=== PATIENT | female | born 1955 | race Hispanic/Latino ===

== ENCOUNTER 2020-02-06 16:17 | Inpatient (IN) | payer OTHER ==
[2020-02-06 17:59] LABS: Hematocrit 25.4 % (30.3-42.9); Hemoglobin 8.4 gm/dl (10.1-14.3); Mean Corpuscular HGB Conc 33 % (30-34); Mean Corpuscular Volume 88 fl (79-97); Platelet Count 278 K/mm3 (140-440); Red Blood Count 2.87 M/mm3 (3.65-5.03); Red Cell Distribution Width 13.7 % (13.2-15.2)
--- NOTE | 2020-02-06 21:12 | Emergency Department Report ---
- General Chief complaint: Medical Clearance Stated complaint: WEAKNESS Time Seen by Provider: 02/06/20 21:00 Source: EMS Mode of arrival: Wheelchair Limitations: No Limitations - History of Present Illness Initial comments: 64-year-old female with a past medical history of end-stage renal disease on dialysis, hypertension, diabetes but not on meds, legally blind, and arthritis p resents to the hospital complaining of progressive worsening generalized weakness and fatigue since missing dialysis. Patient does not have insurance and goes to [facility] ER on average once a week to obtain dialysis. She presented to [facility] 3 days ago but was told she did not meet criteria for emergent dialysis and therefore she was discharged without receiving dialysis. Now it has been a total of 10 days since her last dialysis. Patient complains of worsening edema to left breast and left-sided abdomen because this is the side she typically sleeps on. Patient makes urine on average once every 3 days. - Related Data Home Medications Medication Instructions Recorded Confirmed Last Taken Aspirin [Adult Aspirin] 81 mg PO QPM 02/07/20 02/07/20 2 Days Ago ~02/05/20 81 mg Ibuprofen [Ibu-200] 200 mg PO BID PRN 02/07/20 02/07/20 1 Day Ago ~02/06/20 200 mg amLODIPine [Norvasc] 10 mg PO DAILY 02/07/20 02/07/20 1 Day Ago ~02/06/20 10 mg diphenhydrAMINE [Benadryl CAP] 25 mg PO QHS PRN 02/07/20 02/07/20 02/05/20 25 mg hydrALAZINE [Apresoline TAB] 100 mg PO TID 02/07/20 02/07/20 1 Day Ago ~02/06/20 100 mg lisinopriL [Zestril TAB] 40 mg PO QPM 02/07/20 02/07/20 1 Day Ago ~02/06/20 40 mg Allergies Allergy/AdvReac Type Severity Reaction Status Date / Time latex Allergy Rash Verified 02/07/20 01:57 Latex, Natural Rubber Allergy Rash Verified 02/07/20 01:57 ED Review of Systems ROS: Stated complaint: WEAKNESS Other details as noted in HPI Comment: All other systems reviewed and negative ED Past Medical Hx - Past Medical History Previous Medical History?: Yes Hx Hypertension: Yes Hx Diabetes: Yes (Questionable diabetes but not on meds) Hx Renal Disease: Yes (End-stage renal disease on dialysis) Additional medical history: Arthritis - Surgical History Past Surgical History?: Yes Additional Surgical History: Tubal ligation, tonsillectomy - Social History Smoking Status: Never Smoker Substance Use Type: None - Medications Home Medications: Home Medications Medication Instructions Recorded Confirmed Last Taken Type Aspirin [Adult Aspirin] 81 mg PO QPM 02/07/20 02/07/20 2 Days Ago History ~02/05/20 81 mg Ibuprofen [Ibu-200] 200 mg PO BID PRN 02/07/20 02/07/20 1 Day Ago History ~02/06/20 200 mg amLODIPine [Norvasc] 10 mg PO DAILY 02/07/20 02/07/20 1 Day Ago History ~02/06/20 10 mg diphenhydrAMINE [Benadryl CAP] 25 mg PO QHS PRN 02/07/20 02/07/20 02/05/20 History 25 mg hydrALAZINE [Apresoline TAB] 100 mg PO TID 02/07/20 02/07/20 1 Day Ago History ~02/06/20 100 mg lisinopriL [Zestril TAB] 40 mg PO QPM 02/07/20 02/07/20 1 Day Ago History ~02/06/20 40 mg ED Physical Exam - General Limitations: No Limitations - Other Other exam information: General: No acute distress Head: Atraumatic Eyes: normal appearance ENT: Moist mucous membranes Neck: Normal appearance, no midline tenderness Chest: Clear to auscultation bilaterally, left breast edema without warmth or erythema CV: Regular rate and rhythm. Left upper arm AV access with palpable thrill Abdomen: Soft, left abdominal wall edema, normal bowel sounds, nontender, n ondistended, no rebound or guarding Back: Normal inspection Extremity: Normal inspection, full range of motion, no leg edema or calf tenderness. Neuro: Alert O x 3, no facial asymmetry, speech clear, no gross motor sensory deficit Psych: Appropriate behavior Skin: No rash ED Course Vital Signs 02/06/20 02/06/20 02/06/20 16:27 21:54 22:00 Temperature 98.2 F Pulse Rate 72 72 72 Respiratory 18 16 16 Rate Blood Pressure 141/52 155/50 155/50 O2 Sat by Pulse 100 100 100 Oximetry 02/06/20 02/06/20 02/06/20 22:15 22:20 22:30 Temperature Pulse Rate 74 73 79 Respiratory 16 16 19 Rate Blood Pressure 157/52 157/52 157/52 O2 Sat by Pulse 99 97 97 Oximetry 02/06/20 02/06/20 02/06/20 22:45 23:00 23:15 Temperature Pulse Rate 76 Respiratory 18 Rate Blood Pressure 145/53 139/47 139/49 O2 Sat by Pulse 98 97 98 Oximetry 02/06/20 02/06/20 02/07/20 23:30 23:46 00:00 Temperature Pulse Rate 73 Respiratory 16 Rate Blood Pressure 139/67 139/67 139/67 O2 Sat by Pulse 98 97 100 Oximetry 02/07/20 02/07/20 02/07/20 00:16 00:30 00:50 Temperature Pulse Rate 74 75 77 Respiratory 18 16 21 Rate Blood Pressure 139/67 139/67 139/67 O2 Sat by Pulse 99 97 98 Oximetry - Consultations Consultation #1: 02/06/20 21:24 Case discussed with on-call azure developer Dr. Russell. Recommends potassium p.o. 20 mEq and will manage dialysis ED Medical Decision Making - Lab Data Result diagrams: 02/07/20 05:35 02/07/20 05:35 Lab Results 02/06/20 02/06/20 02/06/20 Range/Units 17:23 17:23 20:03 WBC 14.9 H (4.5-11.0) K/mm3 RBC 2.87 L (3.65-5.03) M/mm3 Hgb 8.4 L (10.1-14.3) gm/dl Hct 25.4 L (30.3-42.9) % MCV 88 (79-97) fl MCH 29 (28-32) pg MCHC 33 (30-34) % RDW 13.7 (13.2-15.2) % Plt Count 278 (140-440) K/mm3 Sodium 136 L (137-145) mmol/L Potassium 2.9 L* (3.6-5.0) mmol/L Chloride 92.9 L (98-107) mmol/L Carbon Dioxide 18 L (22-30) mmol/L Anion Gap 28 mmol/L BUN 70 H (7-17) mg/dL Creatinine 8.4 H (0.6-1.2) mg/dL Estimated GFR 5 ml/min BUN/Creatinine Ratio 8 % Glucose 59 L (65-100) mg/dL POC Glucose 106 H (70-105) Calcium 8.0 L (8.4-10.2) mg/dL Critical Care Time: No Critical care attestation.: If time is entered above; I have spent that time in minutes in the direct care of this critically ill patient, excluding procedure time. ED Disposition Clinical Impression: ESRD needing dialysis, Generalized weakness, Hypokalemia, Breast edema Disposition: OP ADMIT IP TO THIS HOSP Is pt being admited?: Yes Condition: Stable Time of Disposition: 21:25 (Dr tyler/hosp)
[2020-02-06] MEDS ORDERED: POTASSIUM CHLORIDE ER 20 MEQ TAB PO ONE ×2 (21:23→22:03)
--- NOTE | 2020-02-06 21:57 | XRay Report ---
Chest single view INDICATION: Dyspnea IMPRESSION: Moderate bilateral cardiopulmonary edema with small right pleural effusion. Signer Name: Brandon Vo MD Signed: 02/06/2020 9:52 PM Workstation Name: [id number]
[2020-02-06] MEDS ORDERED: MAGNESIUM HYDROXIDE (MOM) ORAL LIQD UDC PO PRN (22:59)
--- NOTE | 2020-02-06 23:28 | History and Physical Report ---
History of Present Illness Date of examination: 02/06/20 Date of admission: 02/06/20 21:30 Chief complaint: Generalized Weakness History of present illness: 64-year-old female with known history of hypertension, diabetes mellitus arthritis and end-stage renal disease on dialysis presents to the emergency room today complaining of worsening generalized body weakness and fatigue for the past few days. Patient goes to [facility] about once a week for dialysis secondary to lack of insurance. She was at [facility] about 3 days ago and dialysis was declined as she did not meet criteria for emergent dialysis. Patient has not had dialysis for the past 10 days. She has no having worsening swelling of her left breast and left side of abdomen. Patient still makes a little bit of urine almost every 3 days. She denies any fever or chills, no nausea vomiting, no chest pain, no shortness of breath, no headache or dizziness. Work-up in the emergency room today reveals hypokalemia of 2.9. Chronic Disease Epidemiologist Dr. Russell has been notified by the ER physician and patient will be scheduled for dialysis in the a.m. Past History Past Medical History: diabetes, ESRD, hypertension Past Surgical History: Other (Tubal ligation,Tonsillectomy) Social history: no significant social history Medications and Allergies Allergies Allergy/AdvReac Type Severity Reaction Status Date / Time latex Allergy Rash Verified 02/07/20 01:57 Latex, Natural Rubber Allergy Rash Verified 02/07/20 01:57 Home Medications Medication Instructions Recorded Confirmed Last Taken Type Aspirin [Adult Aspirin] 81 mg PO QPM 02/07/20 02/07/20 2 Days Ago History ~02/05/20 81 mg Ibuprofen [Ibu-200] 200 mg PO BID PRN 02/07/20 02/07/20 1 Day Ago History ~02/06/20 200 mg amLODIPine [Norvasc] 10 mg PO DAILY 02/07/20 02/07/20 1 Day Ago History ~02/06/20 10 mg diphenhydrAMINE [Benadryl CAP] 25 mg PO QHS PRN 02/07/20 02/07/20 02/05/20 History 25 mg hydrALAZINE [Apresoline TAB] 100 mg PO TID 02/07/20 02/07/20 1 Day Ago History ~02/06/20 100 mg lisinopriL [Zestril TAB] 40 mg PO QPM 02/07/20 02/07/20 1 Day Ago History ~02/06/20 40 mg Active Meds: Active Medications Acetaminophen (Tylenol) 650 mg PO Q4H PRN PRN Reason: Pain MILD(1-3)/Fever >100.5/ADLER Dextrose (D50w (25gm) Syringe) 50 ml IV Q30MIN PRN; Protocol PRN Reason: Hypoglycemia Heparin Sodium (Porcine) (Heparin) 5,000 unit SUB-Q Q8HR ANDREW Insulin Human Lispro (Humalog) 0 unit SUB-Q ACHS ANDREW; Protocol Magnesium Hydroxide (Milk Of Magnesia) 30 ml PO Q4H PRN PRN Reason: Constipation Morphine Sulfate (Morphine) 2 mg IV Q4H PRN PRN Reason: Pain, Moderate (4-6) Ondansetron HCl (Zofran) 4 mg IV Q8H PRN PRN Reason: Nausea And Vomiting Sodium Chloride (Sodium Chloride Flush Syringe 10 Ml) 10 ml IV BID ANDREW Sodium Chloride (Sodium Chloride Flush Syringe 10 Ml) 10 ml IV PRN PRN PRN Reason: LINE FLUSH Review of Systems Constitutional: no fever, no chills Breasts: swelling (Swelling over the left breast) Cardiovascular: no chest pain, no palpitations Respiratory: shortness of breath, no cough Gastrointestinal: no abdominal pain, no nausea, no vomiting, no diarrhea Genitourinary Female: no pelvic pain, no flank pain, no hematuria Musculoskeletal: no neck pain, no low back pain Integumentary: no rash, no pruritis Neurological: no headaches, no confusion Psychiatric: no anxiety, no depression Exam - Constitutional Vitals: Temp Pulse Resp BP Pulse Ox 98.2 F 74 16 157/52 99 02/06/20 16:27 02/06/20 22:15 02/06/20 22:15 02/06/20 22:15 02/06/20 22:15 General appearance: Present: no acute distress, well-nourished - EENT Eyes: Present: PERRL, EOM intact. Absent: scleral icterus ENT: hearing intact, clear oral mucosa, dentition normal - Neck Neck: Present: supple, normal ROM. Absent: carotid bruits (Mainly here) - Respiratory Respiratory effort: normal Respiratory: bilateral: CTA - Cardiovascular Rhythm: regular Heart Sounds: Present: S1 & S2. Absent: gallop, systolic murmur, diastolic murmur, rub - Extremities Extremities: no ischemia, pulses intact, pulses symmetrical (Left upper arm AV fistula with palpable thrill), No edema, Full ROM Peripheral Pulses: within normal limits - Abdominal General gastrointestinal: Present: soft, non-tender, distended (Abdominal wall edema), normal bowel sounds. Absent: mass - Integumentary Integumentary: Present: clear, warm, dry. Absent: rash - Musculoskeletal Musculoskeletal: strength equal bilaterally - Psychiatric Psychiatric: appropriate mood/affect, intact judgment & insight, memory intact, cooperative - Neurologic Neurologic: CNII-XII intact, no focal deficits, moves all extremities Results - Labs CBC & Chem 7: 02/06/20 17:23 02/06/20 17:23 Labs: Abnormal lab results 02/06/20 02/06/20 02/06/20 Range/Units 17:23 17:23 20:03 WBC 14.9 H (4.5-11.0) K/mm3 RBC 2.87 L (3.65-5.03) M/mm3 Hgb 8.4 L (10.1-14.3) gm/dl Hct 25.4 L (30.3-42.9) % Sodium 136 L (137-145) mmol/L Potassium 2.9 L* (3.6-5.0) mmol/L Chloride 92.9 L (98-107) mmol/L Carbon Dioxide 18 L (22-30) mmol/L BUN 70 H (7-17) mg/dL Creatinine 8.4 H (0.6-1.2) mg/dL Glucose 59 L (65-100) mg/dL POC Glucose 106 H (70-105) Calcium 8.0 L (8.4-10.2) mg/dL Assessment and Plan - Patient Problems (1) ESRD needing dialysis Current Visit: Yes Status: Acute Plan to address problem: Consult has been placed to bathing suit maker for dialysis in the a.m. Dr. Russell was notified by the ER physician (2) Breast edema Current Visit: Yes Status: Acute Plan to address problem: Possibly secondary to fluid retention due to lack of dialysis in 10 days. (3) Generalized weakness Current Visit: Yes Status: Acute Plan to address problem: Possibly secondary to the end-stage renal disease. Patient has not had dialysis in about 10 days. (4) Hypokalemia Current Visit: Yes Status: Acute Plan to address problem: Potassium will be repleted and will monitor chemistry. (5) DVT prophylaxis Current Visit: Yes Status: Acute Plan to address problem: Patient placed on subcutaneous heparin. (6) Full code status Current Visit: Yes Status: Acute
[2020-02-07] MEDS: ONDANSETRON 4 MG/2 ML INJ IV PRN ×2 (04:09→20:20)
[2020-02-07] MEDS: MORPHINE 2 MG/1 ML INJ IV PRN ×2 (04:09→20:20)
[2020-02-07 05:48] LABS: Hematocrit 23.1 % (30.3-42.9); Hemoglobin 7.8 gm/dl (10.1-14.3); Mean Corpuscular HGB Conc 34 % (30-34); Mean Corpuscular Volume 88 fl (79-97); Platelet Count 255 K/mm3 (140-440); Red Blood Count 2.63 M/mm3 (3.65-5.03); Red Cell Distribution Width 13.7 % (13.2-15.2)
[2020-02-07 05:59] LABS: INR 1.29 (0.87-1.13)
[2020-02-07 06:09] LABS: Calcium 7.7 mg/dL (8.4-10.2)
[2020-02-07] MEDS: HEPARIN 5,000 UNIT/1 ML VIAL SUB-Q SCH ×3 (06:59→21:42)
[2020-02-07 07:00] LABS: Basophils % (Manual) 0 % (0.0-1.8); Burr Cells Rare; Ovalocytes Rare; Schistocytes Rare; Target Cells Rare; Total Cells Counted 100
[2020-02-07 07:01] LABS: Platelet Estimate Consistent w Auto
[2020-02-07] MEDS: INSULIN LISPRO 100 UNIT/ML VIAL 3 mL SUB-Q SCH ×4 (09:09→22:38)
--- NOTE | 2020-02-07 09:22 | Consultation ---
History of Present Illness - Reason for Consult Consult date: 02/07/20 end stage renal disease - History of Present Illness Mrs Salcido is a 64yo with ESRD who presents to the ED with complaint of fatigue, weakness. She also complains of generalized swelling - more on left side and primarily left breast. She does not have an outpatient dialysis center, so she receives dialysis at local hospitals. She reports that her last treatment was appx 10 days ago. She denies SOB, nausea and vomiting. Past History Past Medical History: diabetes, ESRD, hypertension Past Surgical History: Other (Tubal ligation,Tonsillectomy) Social history: no significant social history Medications and Allergies Allergies Allergy/AdvReac Type Severity Reaction Status Date / Time latex Allergy Rash Verified 02/07/20 01:57 Latex, Natural Rubber Allergy Rash Verified 02/07/20 01:57 Home Medications Medication Instructions Recorded Confirmed Last Taken Type Aspirin [Adult Aspirin] 81 mg PO QPM 02/07/20 02/07/20 2 Days Ago History ~02/05/20 81 mg Ibuprofen [Ibu-200] 200 mg PO BID PRN 02/07/20 02/07/20 1 Day Ago History ~02/06/20 200 mg amLODIPine [Norvasc] 10 mg PO DAILY 02/07/20 02/07/20 1 Day Ago History ~02/06/20 10 mg diphenhydrAMINE [Benadryl CAP] 25 mg PO QHS PRN 02/07/20 02/07/20 02/05/20 History 25 mg hydrALAZINE [Apresoline TAB] 100 mg PO TID 02/07/20 02/07/20 1 Day Ago History ~02/06/20 100 mg lisinopriL [Zestril TAB] 40 mg PO QPM 02/07/20 02/07/20 1 Day Ago History ~02/06/20 40 mg Active Meds: Active Medications Acetaminophen (Tylenol) 650 mg PO Q4H PRN PRN Reason: Pain MILD(1-3)/Fever >100.5/ADLER Dextrose (D50w (25gm) Syringe) 50 ml IV Q30MIN PRN; Protocol PRN Reason: Hypoglycemia Heparin Sodium (Porcine) (Heparin) 5,000 unit SUB-Q Q8HR ANDREW Last Admin: 02/07/20 06:59 Dose: Not Given Documented by: Insulin Human Lispro (Humalog) 0 unit SUB-Q ACHS ANDREW; Protocol Last Admin: 02/07/20 09:09 Dose: Not Given Documented by: Magnesium Hydroxide (Milk Of Magnesia) 30 ml PO Q4H PRN PRN Reason: Constipation Morphine Sulfate (Morphine) 2 mg IV Q4H PRN PRN Reason: Pain, Moderate (4-6) Last Admin: 02/07/20 04:09 Dose: 2 mg Documented by: Ondansetron HCl (Zofran) 4 mg IV Q8H PRN PRN Reason: Nausea And Vomiting Last Admin: 02/07/20 04:09 Dose: 4 mg Documented by: Sodium Chloride (Sodium Chloride Flush Syringe 10 Ml) 10 ml IV BID ANDREW Sodium Chloride (Sodium Chloride Flush Syringe 10 Ml) 10 ml IV PRN PRN PRN Reason: LINE FLUSH Last Admin: 02/07/20 04:10 Dose: 10 ml Documented by: Review of Systems All systems: negative Exam - Vital Signs Vital signs: Vital Signs Temp Pulse Resp BP Pulse Ox 98.2 F 72 18 141/52 100 02/06/20 16:27 02/06/20 16:27 02/06/20 16:27 02/06/20 16:27 02/06/20 16:27 - General Appearance General appearance: well-developed, well-nourished EENT: ATNC Respiratory: Clear to Ascultation Heart: regular, S1S2 Gastrointestinal: Present: obese, other (flank wall edema) Musculoskeletal: Present: other (+ edema) Psychiatric: cooperative Results - Lab Results 02/07/20 05:35 02/07/20 05:35 Most recent lab results Calcium 7.7 mg/dL (8.4-10.2) L 02/07/20 05:35 Assessment and Plan Impression: * End stage renal disease * Edema * Left breast swelling - ?secondary to possible central venous stenosis * Type II DM * Hypertension * Hypokalemia * Anemia secondary to ESRD Plan: * Hemodialysis today - UF as tolerated * If patient remains hospitalized, will plan for hemodialysis tomorrow * Epogen TIW prn * Liberalize diet * Glycemic control per primary team * Dose medications for renal function
[2020-02-07] MEDS ORDERED: SODIUM CHLORIDE 0.9% 100 ML IV PRN ×2 (10:00→11:00)
--- NOTE | 2020-02-07 14:31 | Progress Note ---
Assessment and Plan Assessment and plan: --Diarrhea, probably viral: Imodium, plenty of oral fluids, stool analysis Supportive care --Hypotension; encourage plenty of oral fluids, gentle hydration as patient is end-stage renal disease on dialysis -- ESRD needing dialysis Current Visit: Yes Status: Acute Plan to address problem: Patient received hemodialysis today consult has been placed to wax pot tender for dialysis in the a.m. Dr. Russell was notified by the ER physician -- Breast edema/generalized edema Current Visit: Yes Status: Acute Plan to address problem: Possibly secondary to fluid retention due to lack of dialysis in 10 days. --Generalized weakness Current Visit: Yes Status: Acute Plan to address problem: Possibly secondary to the end-stage renal disease. And diarrhea --Medical noncompliance; Patient is noncompliant with dialysis and follow-up visits Counseling done strongly advised to comply with medications diet follow-up visits especially hemodialysis Patient verbalized understanding -- Hypokalemia Current Visit: Yes Status: Acute . Plan to address problem: Replaced, follow levels -- DVT prophylaxis Current Visit: Yes Status: Acute Plan to address problem: Patient placed on subcutaneous heparin. --Full code status Current Visit: Yes Status: Acute We will closely monitor the patient and adjust management as needed History Interval history: I have seen and examined the patient Received hemodialysis today No new complaints vital signs reviewed Hospitalist Physical - Constitutional Vitals: Temp Pulse Resp BP Pulse Ox 99.1 F 80 18 142/47 94 02/07/20 11:31 02/07/20 11:31 02/07/20 11:31 02/07/20 11:31 02/07/20 11:31 General appearance: Present: no acute distress, well-nourished - EENT Eyes: Present: PERRL, EOM intact - Neck Neck: Present: supple, normal ROM - Respiratory Respiratory effort: normal Respiratory: bilateral: diminished, rales, negative: rhonchi, wheezing - Cardiovascular Rhythm: regular Heart Sounds: Present: S1 & S2 - Extremities Extremities: no ischemia Extremity abnormal: edema - Abdominal General gastrointestinal: soft, non-tender, non-distended, normal bowel sounds - Integumentary Integumentary: Present: clear, warm - Psychiatric Psychiatric: appropriate mood/affect, cooperative - Neurologic Neurologic: moves all extremities Results - Labs CBC & Chem 7: 02/07/20 05:35 02/08/20 08:42 Labs: Laboratory Last Values WBC 13.9 K/mm3 (4.5-11.0) H 02/07/20 05:35 RBC 2.63 M/mm3 (3.65-5.03) L 02/07/20 05:35 Hgb 7.8 gm/dl (10.1-14.3) L 02/07/20 05:35 Hct 23.1 % (30.3-42.9) L 02/07/20 05:35 MCV 88 fl (79-97) 02/07/20 05:35 MCH 30 pg (28-32) 02/07/20 05:35 MCHC 34 % (30-34) 02/07/20 05:35 RDW 13.7 % (13.2-15.2) 02/07/20 05:35 Plt Count 255 K/mm3 (140-440) 02/07/20 05:35 Add Manual Diff Complete 02/07/20 05:35 Total Counted 100 02/07/20 05:35 Seg Neutrophils % Hydraulic Corrugating Machine Operator 02/07/20 05:35 Seg Neuts % (Manual) 90.0 % (40.0-70.0) H 02/07/20 05:35 Band Neutrophils % 0 % 02/07/20 05:35 Lymphocytes % (Manual) 3.0 % (13.4-35.0) L 02/07/20 05:35 Reactive Lymphs % (Man) 0 % 02/07/20 05:35 Monocytes % (Manual) 5.0 % (0.0-7.3) 02/07/20 05:35 Eosinophils % (Manual) 2.0 % (0.0-4.3) 02/07/20 05:35 Basophils % (Manual) 0 % (0.0-1.8) 02/07/20 05:35 Metamyelocytes % 0 % 02/07/20 05:35 Myelocytes % 0 % 02/07/20 05:35 Promyelocytes % 0 % 02/07/20 05:35 Blast Cells % 0 % 02/07/20 05:35 Nucleated RBC % Not Reportable 02/07/20 05:35 Seg Neutrophils # Man 12.5 K/mm3 (1.8-7.7) H 02/07/20 05:35 Band Neutrophils # 0.0 K/mm3 02/07/20 05:35 Lymphocytes # (Manual) 0.4 K/mm3 (1.2-5.4) L 02/07/20 05:35 Abs React Lymphs (Man) 0.0 K/mm3 02/07/20 05:35 Monocytes # (Manual) 0.7 K/mm3 (0.0-0.8) 02/07/20 05:35 Eosinophils # (Manual) 0.3 K/mm3 (0.0-0.4) 02/07/20 05:35 Basophils # (Manual) 0.0 K/mm3 (0.0-0.1) 02/07/20 05:35 Metamyelocytes # 0.0 K/mm3 02/07/20 05:35 Myelocytes # 0.0 K/mm3 02/07/20 05:35 Promyelocytes # 0.0 K/mm3 02/07/20 05:35 Blast Cells # 0.0 K/mm3 02/07/20 05:35 WBC Morphology Not Reportable 02/07/20 05:35 Hypersegmented Neuts Not Reportable 02/07/20 05:35 Hyposegmented Neuts Not Reportable 02/07/20 05:35 Hypogranular Neuts Not Reportable 02/07/20 05:35 Smudge Cells Not Reportable 02/07/20 05:35 Toxic Granulation Not Reportable 02/07/20 05:35 Toxic Vacuolation Not Reportable 02/07/20 05:35 Dohle Bodies Not Reportable 02/07/20 05:35 Pelger-Huet Anomaly Not Reportable 02/07/20 05:35 Dinesh Rods Not Reportable 02/07/20 05:35 Platelet Estimate Consistent w auto 02/07/20 05:35 Clumped Platelets Not Reportable 02/07/20 05:35 Plt Clumps, EDTA Not Reportable 02/07/20 05:35 Large Platelets Not Reportable 02/07/20 05:35 Giant Platelets Not Reportable 02/07/20 05:35 Platelet Satelliting Not Reportable 02/07/20 05:35 Plt Morphology Comment Not Reportable 02/07/20 05:35 RBC Morphology Not Reportable 02/07/20 05:35 Dimorphic RBCs Not Reportable 02/07/20 05:35 Polychromasia Not Reportable 02/07/20 05:35 Hypochromasia Not Reportable 02/07/20 05:35 Poikilocytosis Not Reportable 02/07/20 05:35 Anisocytosis Not Reportable 02/07/20 05:35 Microcytosis Not Reportable 02/07/20 05:35 Macrocytosis Not Reportable 02/07/20 05:35 Spherocytes Not Reportable 02/07/20 05:35 Pappenheimer Bodies Not Reportable 02/07/20 05:35 Sickle Cells Not Reportable 02/07/20 05:35 Target Cells Rare 02/07/20 05:35 Tear Drop Cells Not Reportable 02/07/20 05:35 Ovalocytes Rare 02/07/20 05:35 Helmet Cells Not Reportable 02/07/20 05:35 [place] Bodies Not Reportable 02/07/20 05:35 Rowena Rings Not Reportable 02/07/20 05:35 Nathan Cells Rare 02/07/20 05:35 Bite Cells Not Reportable 02/07/20 05:35 Crenated Cell Not Reportable 02/07/20 05:35 Elliptocytes Not Reportable 02/07/20 05:35 Acanthocytes (Spur) Not Reportable 02/07/20 05:35 Rouleaux Not Reportable 02/07/20 05:35 Hemoglobin C Crystals Not Reportable 02/07/20 05:35 Schistocytes Rare 02/07/20 05:35 Malaria parasites Not Reportable 02/07/20 05:35 Mejia Bodies Not Reportable 02/07/20 05:35 Hem Pathologist Commnt No 02/07/20 05:35 PT 16.3 Sec. (12.2-14.9) H 02/07/20 05:35 INR 1.29 (0.87-1.13) H 02/07/20 05:35 Sodium 136 mmol/L (137-145) L 02/07/20 05:35 Potassium 3.3 mmol/L (3.6-5.0) L 02/07/20 05:35 Chloride 93.3 mmol/L (98-107) L 02/07/20 05:35 Carbon Dioxide 23 mmol/L (22-30) 02/07/20 05:35 Anion Gap 23 mmol/L 02/07/20 05:35 BUN 74 mg/dL (7-17) H 02/07/20 05:35 Creatinine 8.3 mg/dL (0.6-1.2) H 02/07/20 05:35 Estimated GFR 5 ml/min 02/07/20 05:35 BUN/Creatinine Ratio 9 % 02/07/20 05:35 Glucose 98 mg/dL (65-100) 02/07/20 05:35 POC Glucose 96 (70-105) 02/07/20 11:44 Calcium 7.7 mg/dL (8.4-10.2) L 02/07/20 05:35 Nasal Screen MRSA (PCR) Negative (Negative) 02/07/20 02:49 Rodrigez/IV: Voiding Method Incontinent IV Catheter Type [Right Hand] INT / Saline Lock Active Medications - Current Medications Current Medications: Generic Name Dose Route Start Last Admin Trade Name Freq PRN Reason Stop Dose Admin Acetaminophen 650 mg 02/06/20 22:59 Tylenol PO Q4H PRN Pain MILD(1-3)/Fever >100.5/ADLER Dextrose 50 ml 02/06/20 22:59 D50w (25gm) Syringe IV Q30MIN PRN Hypoglycemia Protocol Heparin Sodium (Porcine) 5,000 unit 02/07/20 06:00 02/07/20 14:16 Heparin SUB-Q Not Given Q8HR [facility] Sodium Chloride 100 mls @ 999 mls/hr 02/07/20 11:00 Nacl 0.9% IV MAHSA PRN Hypotension Insulin Human Lispro 0 unit 02/07/20 07:30 02/07/20 14:15 Humalog SUB-Q Not Given ACHS [facility] Protocol Magnesium Hydroxide 30 ml 02/06/20 22:59 Milk Of Magnesia PO Q4H PRN Constipation Morphine Sulfate 2 mg 02/06/20 22:59 02/07/20 04:09 Morphine IV 2 mg Q4H PRN Administration Pain, Moderate (4-6) Ondansetron HCl 4 mg 02/06/20 22:59 02/07/20 04:09 Zofran IV 4 mg Q8H PRN Administration Nausea And Vomiting Sodium Chloride 10 ml 02/07/20 10:00 02/07/20 10:36 Sodium Chloride Flush Syringe 10 Ml IV 10 ml BID ANDREW Administration Sodium Chloride 10 ml 02/06/20 22:59 02/07/20 04:10 Sodium Chloride Flush Syringe 10 Ml IV 10 ml PRN PRN Administration LINE FLUSH
[2020-02-07 15:46] LABS: Hepatitis B Surface Antigen Non-Reactive (Negative); Hepatitis C Virus Antibody Non-Reactive (NonReactive)
[2020-02-07] MEDS: ACETAMINOPHEN 325 MG TAB PO PRN (21:43)
[2020-02-07] MEDS ORDERED: LOPERAMIDE 2 MG CAP PO ONE (22:00)
[2020-02-07] MEDS ORDERED: SIMETHICONE 80 MG CHEW TAB PO ONE (22:00)
[2020-02-08] MEDS: ACETAMINOPHEN 325 MG TAB PO PRN (06:13)
[2020-02-08] MEDS: HEPARIN 5,000 UNIT/1 ML VIAL SUB-Q SCH ×3 (06:13→22:23)
[2020-02-08] MEDS: ONDANSETRON 4 MG/2 ML INJ IV PRN (06:13)
[2020-02-08] MEDS: DEXTROSE 50% IN WATER (25GM) 50 ML SYRINGE IV PRN ×3 (07:49→18:00)
[2020-02-08] MEDS ORDERED: LOPERAMIDE 2 MG CAP PO PRN (08:18)
[2020-02-08] MEDS: INSULIN LISPRO 100 UNIT/ML VIAL 3 mL SUB-Q SCH ×4 (08:47→22:09)
--- NOTE | 2020-02-08 09:10 | Progress Note ---
Assessment and Plan Impression: * End stage renal disease * Edema * Left breast swelling - ?secondary to possible central venous stenosis * Type II DM * Hypertension * Hypokalemia * Anemia secondary to ESRD Plan: * Patient is s/p HD yesterday * Will plan for dialysis again today as prior to admission, patient had not received dialysis in appx 10days * Epogen TIW prn * Liberalize diet * Glycemic control per primary team * Dose medications for renal function Subjective Date of service: 02/08/20 Interval history: No acute events overnight. She is s/p dialysis yesterday. Objective - Vital Signs Vital signs: Vital Signs - 12hr 02/07/20 02/07/20 02/07/20 21:43 22:43 23:58 Temperature 98.4 F Pulse Rate 69 Respiratory 18 20 20 Rate Respiratory Rate [ Generalized] Blood Pressure 99/35 O2 Sat by Pulse 93 Oximetry 02/08/20 02/08/20 02/08/20 00:03 01:00 03:00 Temperature Pulse Rate 84 83 Respiratory Rate Respiratory 20 Rate [ Generalized] Blood Pressure O2 Sat by Pulse Oximetry 02/08/20 02/08/20 04:11 07:48 Temperature 98.0 F 97.2 F L Pulse Rate 85 78 Respiratory 22 20 Rate Respiratory Rate [ Generalized] Blood Pressure 99/31 98/31 O2 Sat by Pulse 94 88 Oximetry - General Appearance General appearance: well-developed, well-nourished EENT: ATNC Respiratory: Present: Decreased Breath Sounds Cardiology: regular, S1S2 Gastrointestinal: other (flank wall edema) Neurologic: other (sleeping, difficult to arouse but responds appropriately to questions) Psychiatric: other - Lab 02/07/20 05:35 02/08/20 08:42 Most recent lab results Calcium 7.7 mg/dL (8.4-10.2) L 02/07/20 05:35 Medications & Allergies - Medications Allergies/Adverse Reactions: Allergies latex Allergy (Verified 02/07/20 01:57) Rash Latex, Natural Rubber Allergy (Verified 02/07/20 01:57) Rash Home Medications: Home Medications Medication Instructions Recorded Confirmed Last Taken Type Aspirin [Adult Aspirin] 81 mg PO QPM 02/07/20 02/07/20 2 Days Ago History ~02/05/20 81 mg Ibuprofen [Ibu-200] 200 mg PO BID PRN 02/07/20 02/07/20 1 Day Ago History ~02/06/20 200 mg amLODIPine [Norvasc] 10 mg PO DAILY 02/07/20 02/07/20 1 Day Ago History ~02/06/20 10 mg diphenhydrAMINE [Benadryl CAP] 25 mg PO QHS PRN 02/07/20 02/07/20 02/05/20 History 25 mg hydrALAZINE [Apresoline TAB] 100 mg PO TID 02/07/20 02/07/20 1 Day Ago History ~02/06/20 100 mg lisinopriL [Zestril TAB] 40 mg PO QPM 02/07/20 02/07/20 1 Day Ago History ~02/06/20 40 mg Active Medications: Generic Name Dose Route Start Last Admin Trade Name Freq PRN Reason Stop Dose Admin Acetaminophen 650 mg 02/06/20 22:59 02/08/20 06:13 Tylenol PO 650 mg Q4H PRN Administration Pain MILD(1-3)/Fever >100.5/ADLER Aspirin 81 mg 02/08/20 18:00 Halfprin Ec PO QPM ANDREW Dextrose 50 ml 02/06/20 22:59 02/08/20 07:49 D50w (25gm) Syringe IV 50 ml Q30MIN PRN Administration Hypoglycemia Protocol Diphenhydramine HCl 25 mg 02/08/20 22:00 Benadryl PO QHS PRN antihistamine, itching & sleep Heparin Sodium (Porcine) 5,000 unit 02/07/20 06:00 02/08/20 06:13 Heparin SUB-Q 5,000 unit Q8HR ANDREW Administration Sodium Chloride 100 mls @ 999 mls/hr 02/07/20 11:00 Nacl 0.9% IV MAHSA PRN Hypotension Insulin Human Lispro 0 unit 02/07/20 07:30 02/08/20 08:47 Humalog SUB-Q Not Given ACHS [facility] Protocol Loperamide HCl 2 mg 02/08/20 08:18 Imodium PO Q2H PRN Diarrhea Magnesium Hydroxide 30 ml 02/06/20 22:59 Milk Of Magnesia PO Q4H PRN Constipation Morphine Sulfate 2 mg 02/06/20 22:59 02/07/20 20:20 Morphine IV 2 mg Q4H PRN Administration Pain, Moderate (4-6) Ondansetron HCl 4 mg 02/06/20 22:59 02/08/20 06:13 Zofran IV 4 mg Q8H PRN Administration Nausea And Vomiting Sodium Chloride 10 ml 02/07/20 10:00 02/07/20 21:49 Sodium Chloride Flush Syringe 10 Ml IV 10 ml BID ANDREW Administration Sodium Chloride 10 ml 02/06/20 22:59 02/07/20 20:21 Sodium Chloride Flush Syringe 10 Ml IV 10 ml PRN PRN Administration LINE FLUSH
[2020-02-08 09:17] LABS: Calcium 7.1 mg/dL (8.4-10.2)
[2020-02-08 09:21] LABS: Alanine Aminotransferase 13 units/L (7-56); Albumin 2.1 g/dL (3.9-5)
[2020-02-08 09:34] LABS: Bilirubin,Direct < 0.2 mg/dL (0-0.2)
[2020-02-08] MEDS ORDERED: MIDODRINE 5 MG TAB PO SCH (10:00)
[2020-02-08] MEDS ORDERED: SODIUM CHLORIDE 0.9% 100 ML IV PRN (10:16)
--- NOTE | 2020-02-08 12:12 | Consultation ---
History of Present Illness Consult date: 02/08/20 Requesting physician: RONN FINLEY Reason for consult: other (Hypotension; ESRD on Dialysis) History of present illness: PULMONARY/CCM CONSULT NOTE (Full dictation # [id number]) Please see dictated notes for full details Past History Past Medical History: diabetes, ESRD, hypertension Past Surgical History: Other (Tubal ligation,Tonsillectomy) Social history: no significant social history Medications and Allergies Allergies Allergy/AdvReac Type Severity Reaction Status Date / Time latex Allergy Rash Verified 02/07/20 01:57 Latex, Natural Rubber Allergy Rash Verified 02/07/20 01:57 Home Medications Medication Instructions Recorded Confirmed Last Taken Type Aspirin [Adult Aspirin] 81 mg PO QPM 02/07/20 02/07/20 2 Days Ago History ~02/05/20 81 mg Ibuprofen [Ibu-200] 200 mg PO BID PRN 02/07/20 02/07/20 1 Day Ago History ~02/06/20 200 mg amLODIPine [Norvasc] 10 mg PO DAILY 02/07/20 02/07/20 1 Day Ago History ~02/06/20 10 mg diphenhydrAMINE [Benadryl CAP] 25 mg PO QHS PRN 02/07/20 02/07/20 02/05/20 History 25 mg hydrALAZINE [Apresoline TAB] 100 mg PO TID 02/07/20 02/07/20 1 Day Ago History ~02/06/20 100 mg lisinopriL [Zestril TAB] 40 mg PO QPM 02/07/20 02/07/20 1 Day Ago History ~02/06/20 40 mg Active Meds: Active Medications Acetaminophen (Tylenol) 650 mg PO Q4H PRN PRN Reason: Pain MILD(1-3)/Fever >100.5/ADLER Last Admin: 02/08/20 06:13 Dose: 650 mg Documented by: Aspirin (Halfprin Ec) 81 mg PO QPM ANDREW Dextrose (D50w (25gm) Syringe) 50 ml IV Q30MIN PRN; Protocol PRN Reason: Hypoglycemia Last Admin: 02/08/20 11:24 Dose: 50 ml Documented by: Diphenhydramine HCl (Benadryl) 25 mg PO QHS PRN PRN Reason: antihistamine, itching & sleep Heparin Sodium (Porcine) (Heparin) 5,000 unit SUB-Q Q8HR [facility] Last Admin: 02/08/20 06:13 Dose: 5,000 unit Documented by: Sodium Chloride (Nacl 0.9%) 100 mls @ 999 mls/hr IV MAHSA PRN PRN Reason: Hypotension Insulin Human Lispro (Humalog) 0 unit SUB-Q ACHS [facility]; Protocol Last Admin: 02/08/20 08:47 Dose: Not Given Documented by: Loperamide HCl (Imodium) 2 mg PO Q2H PRN PRN Reason: Diarrhea Last Admin: 02/08/20 10:54 Dose: 2 mg Documented by: Magnesium Hydroxide (Milk Of Magnesia) 30 ml PO Q4H PRN PRN Reason: Constipation Midodrine (Proamatine) 10 mg PO BID [facility] [place] Last Admin: 02/08/20 10:47 Dose: 10 mg Documented by: Morphine Sulfate (Morphine) 2 mg IV Q4H PRN PRN Reason: Pain, Moderate (4-6) Last Admin: 02/07/20 20:20 Dose: 2 mg Documented by: Ondansetron HCl (Zofran) 4 mg IV Q8H PRN PRN Reason: Nausea And Vomiting Last Admin: 02/08/20 06:13 Dose: 4 mg Documented by: Sodium Chloride (Sodium Chloride Flush Syringe 10 Ml) 10 ml IV BID [facility] Last Admin: 02/08/20 10:47 Dose: 10 ml Documented by: Sodium Chloride (Sodium Chloride Flush Syringe 10 Ml) 10 ml IV PRN PRN PRN Reason: LINE FLUSH Last Admin: 02/07/20 20:21 Dose: 10 ml Documented by: Physical Examination Vital signs: Vital Signs Temp Pulse Resp BP Pulse Ox 98.2 F 72 18 141/52 100 02/06/20 16:27 02/06/20 16:27 02/06/20 16:27 02/06/20 16:27 02/06/20 16:27 Results - Laboratory Findings CBC and BMP: 02/07/20 05:35 02/08/20 08:42 PT/INR, D-dimer PT 16.3 Sec. (12.2-14.9) H 02/07/20 05:35 INR 1.29 (0.87-1.13) H 02/07/20 05:35 Abnormal lab findings: Abnormal Labs 02/06/20 02/06/20 02/06/20 17:23 17:23 20:03 WBC 14.9 H RBC 2.87 L Hgb 8.4 L Hct 25.4 L Seg Neuts % (Manual) Lymphocytes % (Manual) Seg Neutrophils # Man Lymphocytes # (Manual) PT INR Sodium 136 L Potassium 2.9 L* Chloride 92.9 L Carbon Dioxide 18 L BUN 70 H Creatinine 8.4 H Glucose 59 L POC Glucose 106 H Calcium 8.0 L AST Total Protein Albumin 02/07/20 02/07/20 02/07/20 05:35 05:35 05:35 WBC 13.9 H RBC 2.63 L Hgb 7.8 L Hct 23.1 L Seg Neuts % (Manual) 90.0 H Lymphocytes % (Manual) 3.0 L Seg Neutrophils # Man 12.5 H Lymphocytes # (Manual) 0.4 L PT 16.3 H INR 1.29 H Sodium 136 L Potassium 3.3 L Chloride 93.3 L Carbon Dioxide BUN 74 H Creatinine 8.3 H Glucose POC Glucose Calcium 7.7 L AST Total Protein Albumin 02/08/20 02/08/20 02/08/20 08:00 08:28 08:42 WBC RBC Hgb Hct Seg Neuts % (Manual) Lymphocytes % (Manual) Seg Neutrophils # Man Lymphocytes # (Manual) PT INR Sodium 135 L Potassium 3.5 L Chloride 95.7 L Carbon Dioxide 17 L BUN 52 H Creatinine 5.8 H Glucose POC Glucose < 40 L 118 H Calcium 7.1 L AST Total Protein Albumin 02/08/20 02/08/20 02/08/20 08:42 11:34 12:03 WBC RBC Hgb Hct Seg Neuts % (Manual) Lymphocytes % (Manual) Seg Neutrophils # Man Lymphocytes # (Manual) PT INR Sodium Potassium Chloride Carbon Dioxide BUN Creatinine Glucose POC Glucose 59 L 114 H Calcium AST 49 H Total Protein 5.0 L Albumin 2.1 L
--- NOTE | 2020-02-08 12:14 | Progress Note ---
Assessment and Plan Assessment and plan: -- Shock/hypotension Unable to give fluid bolus due to fluid overload shortness of breath add midodrine, if no improvement will transfer to ICU And initiate Levophed per protocol -Ac.Resp Failure / fluid overload: O2, titrate to o2 sats to > 90% Bipap as needed --Diarrhea, probably viral: Imodium, plenty of oral fluids, stool analysis, Supportive care >90% --Hypotension; encourage plenty of oral fluids, gentle hydration as patient is end-stage renal disease on dialysis -- ESRD needing dialysis Current Visit: Yes Status: Acute Plan to address problem: Hemodialysis per schedule, received HD yesterday Scheduled for HD today, Nephrology following -- Breast edema/generalized edema Current Visit: Yes Status: Acute Plan to address problem: Possibly secondary to fluid retention due to lack of dialysis in 10 days. Mild improvement postdialysis --Generalized weakness/general debility Current Visit: Yes Status: Acute Plan to address problem: Due to underlying disease process --Medical noncompliance; Patient is noncompliant with dialysis and follow-up visits Counseling done strongly advised to comply with medications diet follow-up visits especially hemodialysis -- Hypokalemia Current Visit: Yes Status: Acute . Plan to address problem: Replaced, follow levels -- DVT prophylaxis Current Visit: Yes Status: Acute Plan to address problem: Patient placed on subcutaneous heparin. --Full code status Current Visit: Yes Status: Acute We will closely monitor the patient and adjust management as needed Plan of care reviewed with the patient and her nurse History Interval history: I have seen and evaluated the patient at the bedside this morning Patient's chart and current medications reviewed Patient is slightly lethargic and mild hypotension Scheduled for hemodialysis however canceled because of hypotension Patient is minimally communicative responding to simple questions In mild distress, vital signs reviewed Hospitalist Physical - Constitutional Vitals: Temp Pulse Resp BP Pulse Ox 97.2 F L 78 20 104/40 88 02/08/20 07:48 02/08/20 09:51 02/08/20 07:48 02/08/20 09:51 02/08/20 07:48 General appearance: Present: mild distress, well-nourished, other (Slightly lethargic response to simple questions appropriately) - EENT Eyes: Present: PERRL, EOM intact - Neck Neck: Present: supple, normal ROM - Respiratory Respiratory effort: normal Respiratory: bilateral: diminished, rales, negative: rhonchi, wheezing - Cardiovascular Rhythm: regular Heart Sounds: Present: S1 & S2 - Extremities Extremities: no ischemia Extremity abnormal: edema - Abdominal General gastrointestinal: soft, non-tender, non-distended, normal bowel sounds - Integumentary Integumentary: Present: clear, warm - Psychiatric Psychiatric: cooperative, other (Mild lethargy easily awakens) - Neurologic Neurologic: moves all extremities Results - Labs CBC & Chem 7: 02/07/20 05:35 02/08/20 08:42 Labs: Laboratory Last Values WBC 13.9 K/mm3 (4.5-11.0) H 02/07/20 05:35 RBC 2.63 M/mm3 (3.65-5.03) L 02/07/20 05:35 Hgb 7.8 gm/dl (10.1-14.3) L 02/07/20 05:35 Hct 23.1 % (30.3-42.9) L 02/07/20 05:35 MCV 88 fl (79-97) 02/07/20 05:35 MCH 30 pg (28-32) 02/07/20 05:35 MCHC 34 % (30-34) 02/07/20 05:35 RDW 13.7 % (13.2-15.2) 02/07/20 05:35 Plt Count 255 K/mm3 (140-440) 02/07/20 05:35 Add Manual Diff Complete 02/07/20 05:35 Total Counted 100 02/07/20 05:35 Seg Neutrophils % Nursing Assoc 02/07/20 05:35 Seg Neuts % (Manual) 90.0 % (40.0-70.0) H 02/07/20 05:35 Band Neutrophils % 0 % 02/07/20 05:35 Lymphocytes % (Manual) 3.0 % (13.4-35.0) L 02/07/20 05:35 Reactive Lymphs % (Man) 0 % 02/07/20 05:35 Monocytes % (Manual) 5.0 % (0.0-7.3) 02/07/20 05:35 Eosinophils % (Manual) 2.0 % (0.0-4.3) 02/07/20 05:35 Basophils % (Manual) 0 % (0.0-1.8) 02/07/20 05:35 Metamyelocytes % 0 % 02/07/20 05:35 Myelocytes % 0 % 02/07/20 05:35 Promyelocytes % 0 % 02/07/20 05:35 Blast Cells % 0 % 02/07/20 05:35 Nucleated RBC % Not Reportable 02/07/20 05:35 Seg Neutrophils # Man 12.5 K/mm3 (1.8-7.7) H 02/07/20 05:35 Band Neutrophils # 0.0 K/mm3 02/07/20 05:35 Lymphocytes # (Manual) 0.4 K/mm3 (1.2-5.4) L 02/07/20 05:35 Abs React Lymphs (Man) 0.0 K/mm3 02/07/20 05:35 Monocytes # (Manual) 0.7 K/mm3 (0.0-0.8) 02/07/20 05:35 Eosinophils # (Manual) 0.3 K/mm3 (0.0-0.4) 02/07/20 05:35 Basophils # (Manual) 0.0 K/mm3 (0.0-0.1) 02/07/20 05:35 Metamyelocytes # 0.0 K/mm3 02/07/20 05:35 Myelocytes # 0.0 K/mm3 02/07/20 05:35 Promyelocytes # 0.0 K/mm3 02/07/20 05:35 Blast Cells # 0.0 K/mm3 02/07/20 05:35 WBC Morphology Not Reportable 02/07/20 05:35 Hypersegmented Neuts Not Reportable 02/07/20 05:35 Hyposegmented Neuts Not Reportable 02/07/20 05:35 Hypogranular Neuts Not Reportable 02/07/20 05:35 Smudge Cells Not Reportable 02/07/20 05:35 Toxic Granulation Not Reportable 02/07/20 05:35 Toxic Vacuolation Not Reportable 02/07/20 05:35 Dohle Bodies Not Reportable 02/07/20 05:35 Pelger-Huet Anomaly Not Reportable 02/07/20 05:35 Dinesh Rods Not Reportable 02/07/20 05:35 Platelet Estimate Consistent w auto 02/07/20 05:35 Clumped Platelets Not Reportable 02/07/20 05:35 Plt Clumps, EDTA Not Reportable 02/07/20 05:35 Large Platelets Not Reportable 02/07/20 05:35 Giant Platelets Not Reportable 02/07/20 05:35 Platelet Satelliting Not Reportable 02/07/20 05:35 Plt Morphology Comment Not Reportable 02/07/20 05:35 RBC Morphology Not Reportable 02/07/20 05:35 Dimorphic RBCs Not Reportable 02/07/20 05:35 Polychromasia Not Reportable 02/07/20 05:35 Hypochromasia Not Reportable 02/07/20 05:35 Poikilocytosis Not Reportable 02/07/20 05:35 Anisocytosis Not Reportable 02/07/20 05:35 Microcytosis Not Reportable 02/07/20 05:35 Macrocytosis Not Reportable 02/07/20 05:35 Spherocytes Not Reportable 02/07/20 05:35 Pappenheimer Bodies Not Reportable 02/07/20 05:35 Sickle Cells Not Reportable 02/07/20 05:35 Target Cells Rare 02/07/20 05:35 Tear Drop Cells Not Reportable 02/07/20 05:35 Ovalocytes Rare 02/07/20 05:35 Helmet Cells Not Reportable 02/07/20 05:35 [place] Bodies Not Reportable 02/07/20 05:35 Colver Rings Not Reportable 02/07/20 05:35 Nathan Cells Rare 02/07/20 05:35 Bite Cells Not Reportable 02/07/20 05:35 Crenated Cell Not Reportable 02/07/20 05:35 Elliptocytes Not Reportable 02/07/20 05:35 Acanthocytes (Spur) Not Reportable 02/07/20 05:35 Rouleaux Not Reportable 02/07/20 05:35 Hemoglobin C Crystals Not Reportable 02/07/20 05:35 Schistocytes Rare 02/07/20 05:35 Malaria parasites Not Reportable 02/07/20 05:35 Mejia Bodies Not Reportable 02/07/20 05:35 Hem Pathologist Commnt No 02/07/20 05:35 PT 16.3 Sec. (12.2-14.9) H 02/07/20 05:35 INR 1.29 (0.87-1.13) H 02/07/20 05:35 Sodium 135 mmol/L (137-145) L 02/08/20 08:42 Potassium 3.5 mmol/L (3.6-5.0) L 02/08/20 08:42 Chloride 95.7 mmol/L (98-107) L 02/08/20 08:42 Carbon Dioxide 17 mmol/L (22-30) L 02/08/20 08:42 Anion Gap 26 mmol/L 02/08/20 08:42 BUN 52 mg/dL (7-17) H 02/08/20 08:42 Creatinine 5.8 mg/dL (0.6-1.2) H 02/08/20 08:42 Estimated GFR 7 ml/min 02/08/20 08:42 BUN/Creatinine Ratio 9 % 02/08/20 08:42 Glucose 82 mg/dL (65-100) 02/08/20 08:42 Glucose 82 mg/dL (65-100) 02/08/20 08:42 POC Glucose 114 (70-105) H 02/08/20 12:03 Calcium 7.1 mg/dL (8.4-10.2) L 02/08/20 08:42 Total Bilirubin 0.30 mg/dL (0.1-1.2) 02/08/20 08:42 Direct Bilirubin < 0.2 mg/dL (0-0.2) 02/08/20 08:42 Indirect Bilirubin 0.1 mg/dL 02/08/20 08:42 AST 49 units/L (5-40) H 02/08/20 08:42 ALT 13 units/L (7-56) 02/08/20 08:42 Alkaline Phosphatase 92 units/L (35-129) 02/08/20 08:42 Total Protein 5.0 g/dL (6.3-8.2) L 02/08/20 08:42 Albumin 2.1 g/dL (3.9-5) L 02/08/20 08:42 Albumin/Globulin Ratio 0.7 % 02/08/20 08:42 Nasal Screen MRSA (PCR) Negative (Negative) 02/07/20 02:49 Hepatitis A IgM Ab Nonreactive (NonReactive) 02/07/20 14:49 Hep Bs Antigen Non-reactive (Negative) 02/07/20 14:49 Hep B Core IgM Ab Non-reactive (NonReactive) 02/07/20 14:49 Hepatitis C Antibody Non-reactive (NonReactive) 02/07/20 14:49 Rodrigez/IV: Voiding Method Incontinent IV Catheter Type [Right Hand] INT / Saline Lock Active Medications - Current Medications Current Medications: Generic Name Dose Route Start Last Admin Trade Name Freq PRN Reason Stop Dose Admin Acetaminophen 650 mg 02/06/20 22:59 02/08/20 06:13 Tylenol PO 650 mg Q4H PRN Administration Pain MILD(1-3)/Fever >100.5/ADLER Aspirin 81 mg 02/08/20 18:00 Halfprin Ec PO QPM [facility] Dextrose 50 ml 02/06/20 22:59 02/08/20 11:24 D50w (25gm) Syringe IV 50 ml Q30MIN PRN Administration Hypoglycemia Protocol Diphenhydramine HCl 25 mg 02/08/20 22:00 Benadryl PO QHS PRN antihistamine, itching & sleep Heparin Sodium (Porcine) 5,000 unit 02/07/20 06:00 02/08/20 06:13 Heparin SUB-Q 5,000 unit Q8HR ANDREW Administration Sodium Chloride 100 mls @ 999 mls/hr 02/08/20 10:16 Nacl 0.9% IV MAHSA PRN Hypotension Insulin Human Lispro 0 unit 02/07/20 07:30 02/08/20 08:47 Humalog SUB-Q Not Given ACHS [facility] Protocol Loperamide HCl 2 mg 02/08/20 08:18 02/08/20 10:54 Imodium PO 2 mg Q2H PRN Administration Diarrhea Magnesium Hydroxide 30 ml 02/06/20 22:59 Milk Of Magnesia PO Q4H PRN Constipation Midodrine 10 mg 02/08/20 10:00 02/08/20 10:47 Proamatine PO 10 mg BID ANDREW Administration Morphine Sulfate 2 mg 02/06/20 22:59 02/07/20 20:20 Morphine IV 2 mg Q4H PRN Administration Pain, Moderate (4-6) Ondansetron HCl 4 mg 02/06/20 22:59 02/08/20 06:13 Zofran IV 4 mg Q8H PRN Administration Nausea And Vomiting Sodium Chloride 10 ml 02/07/20 10:00 02/08/20 10:47 Sodium Chloride Flush Syringe 10 Ml IV 10 ml BID ANDREW Administration Sodium Chloride 10 ml 02/06/20 22:59 02/07/20 20:21 Sodium Chloride Flush Syringe 10 Ml IV 10 ml PRN PRN Administration LINE FLUSH Nutrition/Malnutrition Assess - Dietary Evaluation Nutrition/Malnutrition Findings: Nutrition Notes Start: 02/07/20 14:37 Freq: Status: Active Protocol: Document 02/07/20 14:37 PATRICA (Rec: 02/07/20 14:41 PATRICA [email or web address] [email or web address]) Nutrition Notes Need for Assessment generated from: MD Order,assistant hall director,MST, Education Initial or Follow up Brief Note Current Diagnosis CKD (stage V CKD),Diabetes, Hypertension Other Pertinent Diagnosis Generalized weakness Current Diet Cardiac/Consistent CHO Labs/Tests Na 136 K 3.3 BUN 74 Cr 8.3 Pertinent Medications Reviewed Height 5 ft 4 in Weight 79 kg [place] Body Weight (kg) 54.54 BMI 29.9 Weight Status Overweight Subjective/Other Information RD consulted for diet education; pt also screened for malnutrition risk. Per records, pt receives HD ~ once weekly sec to lack of insurance. Pt has not had HD in 10 days. Pt is legally blind. Unable to reach pt via phone. Burn Absent Trauma Absent Minimum of two criteria No Is patient on ventilator? No Is Patient Ambulatory and/or Out of Bed No REE-([facility]-confined to bed) 1601.100 Calculation Used for Recommendations [facility] Additional Notes Pro needs >1.2g/kg: >95g/day Fluid needs 1-1.5L/day Nutrition Intervention Follow-Up By: 02/09/20 Additional Comments F/U: intakes, diet education needs, MST assessment
--- NOTE | 2020-02-08 12:20 | Event Note ---
Date: 02/08/20 Responded to code met , nurse found the patient to be less responsive and hypotensive With hypoglycemia. Scheduled for hemodialysis however canceled because of hypotension Patient in mild distress diaphoretic confused Vital signs reviewed, unable to give fluid boluses due to fluid overload secondary to missed hemodialysis Oxygen titrate O2 sats to more than 90%, BiPAP as needed Initiate Levophed drip per protocol, transfer the patient to ICU for close observation Discussed with ICU charge nurse. And real time operator Critical care time 45 minutes
[2020-02-08] MEDS ORDERED: LORazepam 2 MG/ML VIAL IV ONE (12:30)
[2020-02-08] MEDS ORDERED: SODIUM CHLORIDE 0.9% 500 ML 500 ML ONE (12:37)
--- NOTE | 2020-02-08 12:58 | XRay Report ---
CHEST 1 VIEW INDICATION: SOB COMPARISON: 02/06/2020 FINDINGS: Support devices: None Heart: Mildly enlarged but stable Lungs/Pleura: There is again evidence of predominantly pleural scarring on the left, but the acute pu lmonary edema and small bilateral pleural effusions are significantly improved and almost completely resolved. No new disease. IMPRESSION: 1. Improvement/resolution of the pulmonary edema and right pleural effusion. Signer Name: Kristopher Gustafson MD Signed: 02/08/2020 12:53 PM Workstation Name: [id number]
[2020-02-08] MEDS ORDERED: ALBUMIN HUMAN 25% (25 GM/100 ML) INJ IV ONE (13:00)
[2020-02-08] MEDS ORDERED: HALOPERIDOL LACTATE 5 MG/1 ML INJ ONE (13:27)
[2020-02-08] MEDS ORDERED: LORazepam 2 MG/ML VIAL ONE (13:27)
[2020-02-08] MEDS: NORepinephrine 8 MG in SODIUM CHLORIDE 0.9% 250ML 242 ML IV SCH ×3 (13:30→23:49)
--- NOTE | 2020-02-08 14:16 | XRay Report ---
CHEST 1 VIEW INDICATION: central line placement. COMPARISON: Earlier today at 1238 hours FINDINGS: Support devices: A right IJ venous catheter has been inserted which terminates in the mid to lower ri ght atrium. Consider retraction by 2 to 3 cm. Heart: Stable mild cardiomegaly. Lungs/Pleura: Relatively stable pulmonary venous congestion. Small left pleural effusion and left bas ilar atelectasis is suspected. The right lung is generally clear. No pneumothorax. Additional findings: None. IMPRESSION: Right IJ venous catheter as described. No pneumothorax. Mild volume overload/CHF is suspected. Signer Name: Oc Zhao Jr, MD Signed: 02/08/2020 2:11 PM Workstation Name: [id number]
--- NOTE | 2020-02-08 15:05 | Consultation ---
PULMONARY CRITICAL CARE CONSULT NOTE CONSULTING PHYSICIAN: Dr. Phillip. REASON FOR CONSULTATION: Hypotension, end-stage renal disease, on dialysis. CHIEF COMPLAINT AND HISTORY OF PRESENT ILLNESS: The patient is a 64-year-old female with past medical history significant amongst other things for a diagnosis of end-stage renal disease, on dialysis, came into the Emergency Room yesterday complaining of generalized body pain, fatigue. She had been seen at outside hospital and had been going therefore once weekly dialysis secondary to what is described as a lack of health insurance. She went to [facility] 3 days before presentation. Dialysis was declined because she did not meet criteria for emergent dialysis. She has not been dialyzed in the past 10 days. She apparently still makes a little bit of urine. She denied fevers, chills, nausea, vomiting, shortness of breath. She was admitted to the medical floor and that was scheduled for dialysis. I was reached out to by the hospitalist today secondary to hypotension that made it impossible for her to get dialysis. We are asked to assist with management. When I stopped by to see her, she was being placed in bed. She was with it somnolent too close to being but pretty much alert actually, responding appropriately to questions. Breathing was nonlabored. She had very strong femoral pulse. She was being hooked up to the BP monitor at that time. With regards to tobacco use/abuse history, she is described according to the records as a nonsmoker. That really is as much of the history of presentation as I have. PAST MEDICAL HISTORY: Diabetes, hypertension, end-stage renal disease, on dialysis. She is obese, central obesity. PAST SURGICAL HISTORY: She has a left upper extremity I believe AV graft and she has had tubal ligations and tonsillectomy. MEDICATIONS: She was on at the time I stopped by to see her were reviewed. Pertinent medications include the following: Tylenol 650 mg p.o. q. 4 hours p.r.n. mild pain or fevers, aspirin 81 mg p.o. daily, Benadryl 25 mg p.o. at bedtime p.r.n. itching, heparin 5000 units subcutaneous q.8 hours, insulin via sliding scale, Imodium 2 mg p.o. q. 12 hours p.r.n. diarrhea, midodrine 10 mg p.o. b.i.d. scheduled, morphine sulfate 2 mg IV q. 4 hours p.r.n. moderate pain, Zofran 4 mg IV q. 8 hours p.r.n. nausea and vomiting. ALLERGIES: LATEX AND NATURAL RUBBER. Nature of this allergy is unknown. DIET: Obese lady with central obesity, mostly acute weight loss or gain history is unknown. FAMILY AND SOCIAL HISTORY: Apparently lives in the community. Alcohol, tobacco, or illicit drug use or abuse history is unknown, but denied at presentation. REVIEW OF SYSTEMS: Difficult to obtain secondary to the patient's medical and mental condition. She does deny any uncontrolled pain at this time. Since she has been here, no gross hematochezia or melena, no gross hematuria, no hematemesis, no hemoptysis, no witnessed seizures. No new onset focal weakness. Review of systems otherwise unobtainable or as in the body of history above. PHYSICAL EXAMINATION: VITAL SIGNS: At presentation in the Emergency Room, she was afebrile, temperature 98.2 degrees Fahrenheit, pulse of 72, respiratory rate of 18, blood pressure 141/52, O2 sats 100%, inspired oxygen concentration at that time was not recorded. Since she has been here, she has had no significant fever and at the time I saw her, O2 sats were 94% on 2 liters nasal cannula. GENERAL: Elderly looking female, normocephalic, atraumatic, talking to me with mildly increased respiratory effort at rest. HEAD, EYES, EARS, NOSE, AND HEENT: Anicteric. No conjunctival erythema. Oropharynx looks dry. No gross jugular venous distention, no thyromegaly. NECK: Grossly, there were no palpable lymph nodes in the supraclavicular or submandibular lymph node chains. LUNGS: Auscultation of both lung river revealed diminished bilateral breath sounds, but clear at the time of my evaluation without any wheezing. HEART: Heart sounds 1 and 2 are heard. They were regular in rate and rhythm at the time of my evaluation without overt rubs or murmurs. ABDOMEN: Soft, full, protuberant. Bowel sounds are positive, nontender, no palpable hepatosplenomegaly. EXTREMITIES: Without overt digital clubbing or cyanosis. No pedal edema. Pedal pulses are 2+ bilaterally and strong femoral pulse. NEUROLOGIC: Pupils were equal, round, about 3 mm, reactive to light. Extraocular muscle movements appeared intact. She moved all 4 extremities spontaneously. She was appropriate in her replies, but did appear to be a little bit agitated/delirious. SKIN: Normal turgor in the areas examined without overt cellulitis or rash. Please see the wound care nurse's note for full description of her skin. PSYCHIATRIC: The mood and affect was somewhat anxious. LABORATORY DATA: From my review are as follows: Admission white cell count 14,900, hemoglobin 8.4, hematocrit 25.4, platelet count 278. No band forms reported. Serum sodium was 136, potassium 2.9, chloride 93, bicarbonate 18, BUN was 70, creatinine 8.4 and glucose was 106. MRSA screen was negative. Hepatitis screen was nonreactive. Potassium today is 3.5, bicarbonate is down to 17. No microbiology studies for review. A chest x-ray was done, essentially shows gross cardiomegaly, likely small bilateral pleural effusions. It is rotated to the left and mild interstitial edema, possible mild to moderate effusion on the right. No gross pneumothorax, no gross bony fracture. ASSESSMENT: 1. Acute hypoxemic respiratory failure. 2. Hypotension. 3. End-stage renal disease, on dialysis. 4. History of diabetes. 5. History of hypertension. 6. Acute encephalopathy, likely toxic metabolic. 7. Anemia that is normocytic. 8. Leukocytosis. 9. Hypokalemia at presentation. 10. Mild metabolic acidosis. 11. Adult failure to thrive. PLAN: We will get a stat arterial blood gas and make decisions going forward from there. I will increase the midodrine to 50 mg p.o. t.i.d. with hold parameters. Vasopressors will be started if mean arterial pressures stay below 65 mmHg, especially if nonresponsive to volume. In this lady with end-stage renal disease and hypotension, I would also go ahead and empirically get two sets of blood cultures. Consideration will be given for starting empiric antibiotics. I will get a lactic acid level, get a procalcitonin level and a CRP level. If those are elevated, I would lean towards starting empiric antibiotics including MRSA coverage. She is appropriately on DVT prophylaxis with heparin. I will also be putting her on GI prophylaxis with Pepcid. Flu and pneumonia vaccination will be addressed per protocol. Further interventions will depend on the result of the blood gases and vasopressors will also be started again if her MAPs are less than 65, at which time central venous access will be sought. Thank you very much for the consult Dr. Phillip. We will follow along and make further recommendations as picture progresses/becomes clearer. JOB# [id number] MITCH/NTS
[2020-02-08] MEDS: MIDODRINE 5 MG TAB PO SCH ×2 (15:24→20:44)
[2020-02-08] MEDS ORDERED: SODIUM BICARBONATE 150 MEQ in DEXTROSE 5% IN WATER 1,000 ML IV SCH (16:00)
[2020-02-08] MEDS ORDERED: VANCOMYCIN/NS 1 GM/250 ML 1 GM/250 ML BAG IV SCH (16:00)
[2020-02-08] MEDS ORDERED: HALOPERIDOL LACTATE 5 MG/1 ML INJ IV ONE (16:01)
[2020-02-08] MEDS ORDERED: VANCOMYCIN 1,500 MG in SODIUM CHLORIDE 0.9% 500 ML 500 ML IV ONE (17:00)
[2020-02-08] MEDS ORDERED: ASPIRIN EC 81 MG TAB PO SCH (18:00)
[2020-02-08] MEDS: PIPERACIL-TAZO 2.25 GM/50 ML 2.25 GM/50 ML BAG IV SCH ×2 (18:15→22:15)
[2020-02-08] MEDS ORDERED: diphenhydrAMINE 25 MG CAP PO PRN (22:00)
[2020-02-08] MEDS ORDERED: NORepinephrine/NS 4 MG-250 ML 4 MG/250 ML BAG IV ONE (23:15)
[2020-02-09 04:51] LABS: Hematocrit 29.5 % (30.3-42.9); Hemoglobin 9.8 gm/dl (10.1-14.3); Mean Corpuscular HGB Conc 33 % (30-34); Mean Corpuscular Volume 89 fl (79-97); Platelet Count 247 K/mm3 (140-440); Red Blood Count 3.32 M/mm3 (3.65-5.03); Red Cell Distribution Width 14.3 % (13.2-15.2)
[2020-02-09 05:06] LABS: Albumin 2.2 g/dL (3.9-5); Bilirubin,Direct 0.2 mg/dL (0-0.2); Calcium 6.7 mg/dL (8.4-10.2)
[2020-02-09] MEDS ORDERED: SODIUM BICARB 8.4% 50 MEQ/50 ML SYRINGE IV ONE ×3 (05:20→10:00)
[2020-02-09] MEDS ORDERED: DEXTROSE 50% IN WATER (25GM) 50 ML SYRINGE IV ONE (05:20)
[2020-02-09] MEDS ORDERED: EPINEPHrine 1 MG/10 ML SYRINGE ONE (05:20)
[2020-02-09] MEDS: NORepinephrine 8 MG in SODIUM CHLORIDE 0.9% 250ML 242 ML IV SCH (05:21)
[2020-02-09] MEDS: PIPERACIL-TAZO 2.25 GM/50 ML 2.25 GM/50 ML BAG IV SCH (05:27)
--- NOTE | 2020-02-09 05:27 | XRay Report ---
CHEST 1 VIEW INDICATION / CLINICAL INFORMATION: intubation/NG TUBE. COMPARISON: 10/09/2019 FINDINGS: SUPPORT DEVICES: Interval placement of endotracheal tube. The tip is approximately 3.5 cm from the ca matilde and appears to be in appropriate position. NG tube has also been placed. The tip is projecting i n the distal stomach. Large amount of NG tube is coiled within the stomach. It would be appropriate t o withdraw several centimeters HEART / MEDIASTINUM: Enlarged, stable. LUNGS / PLEURA: Previously noted bibasilar pleural-parenchymal disease, worse on the left, has shown improvement. Pulmonary edema is regressing. No pneumothorax. ADDITIONAL FINDINGS: Of concern is the interval development of pneumoperitoneum. IMPRESSION: 1. Interval development of pneumoperitoneum. 2. Satisfactory positioning of ET tube. 3. NG tube tip is in the very distal portion of the stomach. You may wish to withdraw 6-7 cm. CRITICAL RESULT: Time of Discovery: 0420 hours ROPE CUTTER Time of Communication: 0422 ROPE CUTTER Licensed Practitioner Receiving Report: Jon Read Back Performed: Yes. Signer Name: Lima Fierro MD Signed: 02/09/2020 5:23 AM Workstation Name: [email or web address]
[2020-02-09] MEDS: HEPARIN 5,000 UNIT/1 ML VIAL SUB-Q SCH (05:30)
--- NOTE | 2020-02-09 06:04 | Event Note ---
Date: 02/09/20 KATEY ALEMAN called on 64-year-old female who has been on admission for end-stage renal disease needing dialysis, hypotension and generalized edema. Resuscitative measures commenced according to ACLS protocol and there was spontaneous return of circulation after about 3 rounds of epinephrine. Patient was subsequently intubated. We will follow labs and also get a chest x-ray. We will continue to monitor closely in the intensive care unit. Patient is currently being followed by nephrology and the intermodal dispatcher. Will sign out to incoming hospitalist.
[2020-02-09 06:56] LABS: Basophils % (Manual) 0 % (0.0-1.8); Eosinophils % (Manual) 0 % (0.0-4.3); Total Cells Counted 100
[2020-02-09 06:57] LABS: Burr Cells 1+; Ovalocytes Rare
[2020-02-09 06:58] LABS: Platelet Estimate Consistent w Auto; Schistocytes Rare; Target Cells Rare
[2020-02-09] MEDS ORDERED: VANCOMYCIN PHARMACY TO DOSE IV SCH (08:00)
[2020-02-09] MEDS ORDERED: POTASSIUM CHLORIDE 20 MEQ 20 MEQ/100 ML BAG IV SCH (08:00)
[2020-02-09] MEDS: DEXTROSE 50% IN WATER (25GM) 50 ML SYRINGE IV PRN (08:05)
--- NOTE | 2020-02-09 08:33 | Progress Note ---
Assessment and Plan Assessment and plan: --PEA cardiac arrest;s/p CPR Supportive care, patient is critically ill with poor prognosis --Ac.Resp Failure / fluid overload/cardiac arrest: Intubated on ventilatory support. Nebulizers, pulmonary critical following. -- Shock/hypotension On Levophed per protocol,And midodrine, Unable to give fluid bolus due to fluid overload shortness of breath. --? Pneumoperitoneum; on chest x-ray following intubation Will get CT abdomen and pelvis with oral contrast Consulted surgeon , discussed with Dr. Gonzalez --Metabolic/anoxic encephalopathy Multifactorial, supportive care --Diarrhea, probably viral: Imodium, plenty of oral fluids, stool analysis, Supportive care >90% -- ESRD needing dialysis/fluid overload Current Visit: Yes Status: Acute Plan to address problem: Fluid overload ,hemodialysis per schedule, HD per schedule Nephrology following -- Breast edema/generalized edema Current Visit: Yes Status: Acute Plan to address problem: Possibly secondary to fluid retention due to lack of dialysis in 10 days. Mild improvement postdialysis --Generalized weakness/general debility Current Visit: Yes Status: Acute Plan to address problem: Due to underlying disease process --Medical noncompliance; Patient is noncompliant with dialysis and follow-up visits Counseling done strongly advised to comply with medications diet follow-up visits especially hemodialysis -- Hypokalemia Current Visit: Yes Status: Acute . Plan to address problem: Replace IV KCl, follow levels -- DVT prophylaxis Current Visit: Yes Status: Acute Plan to address problem: Patient placed on subcutaneous heparin. --Full code status Current Visit: Yes Status: Acute Patient is critically ill with poor prognosis Discussed with next of kin sister Ms. Will Diop this morning [phone] Explained in detail last night events and a cardiac arrest, the poor prognosis And advanced directives, She reports that she and her sister[Ms.Eva Salcido] have discussed many times in the past And her sister[the patient] does not want life support/CPR Wanted DNR status.. Patient is DNR status as per the request of Next of kin/stop Ms. Will Diop. 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 Patient was intubated and is on ventilatory support Patient is critically ill, hypotensive on Levophed with poor prognosis Vital signs reviewed Hospitalist Physical - Constitutional Vitals: Temp Pulse Resp BP Pulse Ox 98.3 F 106 H 29 H 104/46 100 02/09/20 04:00 02/09/20 08:21 02/09/20 08:21 02/09/20 08:21 02/09/20 08:21 General appearance: Present: severe distress, well-nourished, other (Critically ill looking) - EENT Eyes: Present: PERRL, EOM intact - Neck Neck: Present: supple. Absent: enlarged thyroid - Respiratory Respiratory effort: labored Respiratory: bilateral: diminished, rales, negative: rhonchi, wheezing - Cardiovascular Rhythm: regular Heart Sounds: Present: S1 & S2 - Extremities Extremities: no ischemia Extremity abnormal: edema - Abdominal General gastrointestinal: soft, non-distended, normal bowel sounds - Integumentary Integumentary: Present: clear, warm - Psychiatric Psychiatric: other (Intubated on vent) - Neurologic Neurologic: other (Intubated on vent) Results - Labs CBC & Chem 7: 02/09/20 Unknown 02/09/20 04:00 Labs: Laboratory Last Values WBC 4.6 K/mm3 (4.5-11.0) 02/09/20 Unknown RBC 3.32 M/mm3 (3.65-5.03) L 02/09/20 Unknown Hgb 9.8 gm/dl (10.1-14.3) L 02/09/20 Unknown Hct 29.5 % (30.3-42.9) L D 02/09/20 Unknown MCV 89 fl (79-97) 02/09/20 Unknown MCH 30 pg (28-32) 02/09/20 Unknown MCHC 33 % (30-34) 02/09/20 Unknown RDW 14.3 % (13.2-15.2) 02/09/20 Unknown Plt Count 247 K/mm3 (140-440) 02/09/20 Unknown Add Manual Diff Complete 02/09/20 Unknown Total Counted 100 02/09/20 Unknown Seg Neutrophils % Client Services Administrator 02/09/20 Unknown Seg Neuts % (Manual) 7.0 % (40.0-70.0) L 02/09/20 Unknown Band Neutrophils % 87.0 % 02/09/20 Unknown Lymphocytes % (Manual) 2.0 % (13.4-35.0) L 02/09/20 Unknown Reactive Lymphs % (Man) 0 % 02/09/20 Unknown Monocytes % (Manual) 4.0 % (0.0-7.3) 02/09/20 Unknown Eosinophils % (Manual) 0 % (0.0-4.3) 02/09/20 Unknown Basophils % (Manual) 0 % (0.0-1.8) 02/09/20 Unknown Metamyelocytes % 0 % 02/09/20 Unknown Myelocytes % 0 % 02/09/20 Unknown Promyelocytes % 0 % 02/09/20 Unknown Blast Cells % 0 % 02/09/20 Unknown Nucleated RBC % Not Reportable 02/09/20 Unknown Seg Neutrophils # Man 0.3 K/mm3 (1.8-7.7) L 02/09/20 Unknown Band Neutrophils # 4.0 K/mm3 02/09/20 Unknown Lymphocytes # (Manual) 0.1 K/mm3 (1.2-5.4) L 02/09/20 Unknown Abs React Lymphs (Man) 0.0 K/mm3 02/09/20 Unknown Monocytes # (Manual) 0.2 K/mm3 (0.0-0.8) 02/09/20 Unknown Eosinophils # (Manual) 0.0 K/mm3 (0.0-0.4) 02/09/20 Unknown Basophils # (Manual) 0.0 K/mm3 (0.0-0.1) 02/09/20 Unknown Metamyelocytes # 0.0 K/mm3 02/09/20 Unknown Myelocytes # 0.0 K/mm3 02/09/20 Unknown Promyelocytes # 0.0 K/mm3 02/09/20 Unknown Blast Cells # 0.0 K/mm3 02/09/20 Unknown WBC Morphology Not Reportable 02/09/20 Unknown Hypersegmented Neuts Not Reportable 02/09/20 Unknown Hyposegmented Neuts Not Reportable 02/09/20 Unknown Hypogranular Neuts Not Reportable 02/09/20 Unknown Smudge Cells Not Reportable 02/09/20 Unknown Toxic Granulation Not Reportable 02/09/20 Unknown Toxic Vacuolation Not Reportable 02/09/20 Unknown Dohle Bodies Not Reportable 02/09/20 Unknown Pelger-Huet Anomaly Not Reportable 02/09/20 Unknown Dinesh Rods Not Reportable 02/09/20 Unknown Platelet Estimate Consistent w auto 02/09/20 Unknown Clumped Platelets Not Reportable 02/09/20 Unknown Plt Clumps, EDTA Not Reportable 02/09/20 Unknown Large Platelets Not Reportable 02/09/20 Unknown Giant Platelets Not Reportable 02/09/20 Unknown Platelet Satelliting Not Reportable 02/09/20 Unknown Plt Morphology Comment Not Reportable 02/09/20 Unknown RBC Morphology Not Reportable 02/09/20 Unknown Dimorphic RBCs Not Reportable 02/09/20 Unknown Polychromasia Not Reportable 02/09/20 Unknown Hypochromasia Not Reportable 02/09/20 Unknown Poikilocytosis Not Reportable 02/09/20 Unknown Anisocytosis Not Reportable 02/09/20 Unknown Microcytosis Not Reportable 02/09/20 Unknown Macrocytosis Not Reportable 02/09/20 Unknown Spherocytes Not Reportable 02/09/20 Unknown Pappenheimer Bodies Not Reportable 02/09/20 Unknown Sickle Cells Not Reportable 02/09/20 Unknown Target Cells Rare 02/09/20 Unknown Tear Drop Cells Not Reportable 02/09/20 Unknown Ovalocytes Rare 02/09/20 Unknown Helmet Cells Not Reportable 02/09/20 Unknown Bourgeois-Grayling Bodies Not Reportable 02/09/20 Unknown Ramsay Rings Not Reportable 02/09/20 Unknown Nathan Cells 1+ 02/09/20 Unknown Bite Cells Not Reportable 02/09/20 Unknown Crenated Cell Not Reportable 02/09/20 Unknown Elliptocytes Not Reportable 02/09/20 Unknown Acanthocytes (Spur) Not Reportable 02/09/20 Unknown Rouleaux Not Reportable 02/09/20 Unknown Hemoglobin C Crystals Not Reportable 02/09/20 Unknown Schistocytes Rare 02/09/20 Unknown Malaria parasites Not Reportable 02/09/20 Unknown Mejia Bodies Not Reportable 02/09/20 Unknown Hem Pathologist Commnt No 02/09/20 Unknown PT 16.3 Sec. (12.2-14.9) H 02/07/20 05:35 INR 1.29 (0.87-1.13) H 02/07/20 05:35 ABG pH 7.295 (7.320-7.450) L 02/08/20 12:39 POC ABG pCO2 45.5 mmHg (32.0-48.0) 02/08/20 12:39 POC ABG pO2 28.5 mmHg (83-108) L 02/08/20 12:39 Sodium 138 mmol/L (137-145) 02/09/20 04:00 Potassium 3.1 mmol/L (3.6-5.0) L 02/09/20 04:00 Chloride 96.1 mmol/L (98-107) L 02/09/20 04:00 Carbon Dioxide 19 mmol/L (22-30) L 02/09/20 04:00 Anion Gap 26 mmol/L 02/09/20 04:00 BUN 55 mg/dL (7-17) H 02/09/20 04:00 Creatinine 3.9 mg/dL (0.6-1.2) H 02/09/20 04:00 Estimated GFR 12 ml/min 02/09/20 04:00 BUN/Creatinine Ratio 14 % 02/09/20 04:00 Glucose 47 mg/dL (65-100) L 02/09/20 04:00 POC Glucose 51 (70-105) L 02/09/20 07:46 Lactic Acid 6.00 mmol/L (0.7-2.0) H* 02/08/20 14:10 Calcium 6.7 mg/dL (8.4-10.2) L 02/09/20 04:00 Total Bilirubin 0.30 mg/dL (0.1-1.2) 02/09/20 04:00 Direct Bilirubin 0.2 mg/dL (0-0.2) 02/09/20 04:00 Indirect Bilirubin 0.1 mg/dL 02/09/20 04:00 AST 95 units/L (5-40) H 02/09/20 04:00 ALT 26 units/L (7-56) 02/09/20 04:00 Alkaline Phosphatase 113 units/L (35-129) 02/09/20 04:00 C-Reactive Protein 11.30 mg/dL (0.00-1.30) H 02/08/20 14:10 Total Protein 4.9 g/dL (6.3-8.2) L 02/09/20 04:00 Albumin 2.2 g/dL (3.9-5) L 02/09/20 04:00 Albumin/Globulin Ratio 0.8 % 02/09/20 04:00 Nasal Screen MRSA (PCR) Negative (Negative) 02/07/20 02:49 Hepatitis A IgM Ab Nonreactive (NonReactive) 02/07/20 14:49 Hep Bs Antigen Non-reactive (Negative) 02/07/20 14:49 Hep B Core IgM Ab Non-reactive (NonReactive) 02/07/20 14:49 Hepatitis C Antibody Non-reactive (NonReactive) 02/07/20 14:49 Microbiology: Microbiology 02/08/20 14:42 Peripheral/Venous Blood Culture - Preliminary Culture in Progress 02/08/20 14:42 Peripheral/Venous Blood Culture - Preliminary Culture in Progress 02/08/20 10:57 Stool Stool for WBCs - Final Few Polymorphonuclear Cells Seen Rodrigez/IV: Voiding Method Incontinent IV Catheter Type [Right Triple Lumen Cath Internal Jugular] IV Catheter Type [Right Hand] INT / Saline Lock Active Medications - Current Medications Current Medications: Generic Name Dose Route Start Last Admin Trade Name Freq PRN Reason Stop Dose Admin Acetaminophen 650 mg 02/06/20 22:59 02/08/20 06:13 Tylenol PO 650 mg Q4H PRN Administration Pain MILD(1-3)/Fever >100.5/ADLER Aspirin 81 mg 02/09/20 18:00 Baby Aspirin PO QPM ANDREW Dextrose 50 ml 02/06/20 22:59 02/09/20 08:05 D50w (25gm) Syringe IV 50 ml Q30MIN PRN Administration Hypoglycemia Protocol Diphenhydramine HCl 25 mg 02/08/20 22:00 Benadryl PO QHS PRN antihistamine, itching & sleep Famotidine 20 mg 02/09/20 10:00 Pepcid IV DAILY ANDREW Heparin Sodium (Porcine) 5,000 unit 02/07/20 06:00 02/09/20 05:30 Heparin SUB-Q 5,000 unit Q8HR ANDREW Administration Sodium Chloride 100 mls @ 999 mls/hr 02/08/20 10:16 Nacl 0.9% IV MAHSA PRN Hypotension Norepinephrine 8 mg/ Sodium 250 mls @ 3.75 mls/hr 02/08/20 13:00 02/09/20 07:00 Chloride IV 30 mcg/min TITR ANDREW 56.25 mls/hr Titration Protocol 2 MCG/MIN Piperacillin Sod/Tazobactam Sod 2.25 gm in 50 mls @ 100 mls/hr 02/08/20 16:00 02/09/20 05:27 Zosyn/Ns 2.25 Gm/50ml IV 100 mls/hr Q8HR ANDREW Administration Protocol Potassium Chloride 20 meq in 100 mls @ 100 mls/hr 02/09/20 08:00 Kcl 20meq/100ml IV 02/09/20 09:59 Q1H [facility] Insulin Human Lispro 0 unit 02/09/20 12:00 Humalog SUB-Q Q6HR [facility] Protocol Loperamide HCl 2 mg 02/08/20 08:18 02/08/20 10:54 Imodium PO 2 mg Q2H PRN Administration Diarrhea Magnesium Hydroxide 30 ml 02/06/20 22:59 Milk Of Magnesia PO Q4H PRN Constipation Midodrine 15 mg 02/08/20 14:00 02/08/20 20:44 Proamatine PO Not Given TID [facility] Morphine Sulfate 2 mg 02/06/20 22:59 02/07/20 20:20 Morphine IV 2 mg Q4H PRN Administration Pain, Moderate (4-6) Ondansetron HCl 4 mg 02/06/20 22:59 02/08/20 06:13 Zofran IV 4 mg Q8H PRN Administration Nausea And Vomiting Sodium Chloride 10 ml 02/07/20 10:00 02/08/20 22:23 Sodium Chloride Flush Syringe 10 Ml IV 10 ml BID ANDREW Administration Sodium Chloride 10 ml 02/06/20 22:59 02/07/20 20:21 Sodium Chloride Flush Syringe 10 Ml IV 10 ml PRN PRN Administration LINE FLUSH Nutrition/Malnutrition Assess - Dietary Evaluation Nutrition/Malnutrition Findings: Nutrition Notes Start: 02/07/20 14:3 7 Freq: Status: Active Protocol: Document 02/07/20 14:37 PATRICA (Rec: 02/07/20 14:41 PATRICA [email or web address]) Nutrition Notes Need for Assessment generated from: MD Order,case aide,MST, Education Initial or Follow up Brief Note Current Diagnosis CKD (stage V CKD),Diabetes, Hypertension Other Pertinent Diagnosis Generalized weakness Current Diet Cardiac/Consistent CHO Labs/Tests Na 136 K 3.3 BUN 74 Cr 8.3 Pertinent Medications Reviewed Height 5 ft 4 in Weight 79 kg [place] Body Weight (kg) 54.54 BMI 29.9 Weight Status Overweight Subjective/Other Information RD consulted for diet education; pt also screened for malnutrition risk. Per records, pt receives HD ~ once weekly sec to lack of insurance. Pt has not had HD in 10 days. Pt is legally blind. Unable to reach pt via phone. Burn Absent Trauma Absent Minimum of two criteria No Is patient on ventilator? No Is Patient Ambulatory and/or Out of Bed No [facility] 1601.100 Calculation Used for Recommendations [facility] Additional Notes Pro needs >1.2g/kg: >95g/day Fluid needs 1-1.5L/day Nutrition Intervention Follow-Up By: 02/09/20 Additional Comments F/U: intakes, diet education needs, MST assessment
[2020-02-09] MEDS ORDERED: POTASSIUM CHLORIDE 10 MEQ 10 MEQ/100 ML BAG IV SCH (09:00)
--- NOTE | 2020-02-09 09:22 | Event Note ---
Date: 02/09/20 Nurse reports that patient is in asystole, on the potline monitor Patient is DNR status, when I evaluated the patient Patient is unresponsive, no cardiopulmonary activity Straight-line on the potline monitor Pronounced at 9:11 AM Time of ; 9:11 AM on 02/09/2020 I called and informed patient's sister Ms. Will Diop of the patient's demise. And gave her and her family my condolences and best wishes
[2020-02-09] MEDS ORDERED: FAMOTIDINE 20 MG/2 ML INJ IV SCH (10:00)
--- NOTE | 2020-02-09 10:17 | Consultation ---
History of Present Illness Consult date: 02/09/20 Reason for consult: other (pneumoperitoneum) Requesting physician: RONN FINLEY Chief complaint: pneumoperitoneum - History of present illness History of present illness: 64-year-old female with known history of hypertension, diabetes mellitus arthritis and end-stage renal disease on dialysis presented to the emergency room today complaining of worsening generalized body weakness and fatigue for the past few days. He was admitted for hypokalemia and for dialysis in the a.m. Today, in the ICU, the patient had a cardiac arrest. CPR was instituted. Postintubation chest x-ray showed evidence of pneumoperitoneum. General surgery was consulted. Prior chest x-ray showed no pneumoperitoneum. Past History Past Medical History: diabetes, ESRD, hypertension Past Surgical History: Other (Tubal ligation,Tonsillectomy) Social history: no significant social history Medications and Allergies Allergies Allergy/AdvReac Type Severity Reaction Status Date / Time latex Allergy Rash Verified 02/07/20 01:57 Latex, Natural Rubber Allergy Rash Verified 02/07/20 01:57 Home Medications Medication Instructions Recorded Confirmed Last Taken Type Aspirin [Adult Aspirin] 81 mg PO QPM 02/07/20 02/07/20 2 Days Ago History ~02/05/20 81 mg Ibuprofen [Ibu-200] 200 mg PO BID PRN 02/07/20 02/07/20 1 Day Ago History ~02/06/20 200 mg amLODIPine [Norvasc] 10 mg PO DAILY 02/07/20 02/07/20 1 Day Ago History ~02/06/20 10 mg diphenhydrAMINE [Benadryl CAP] 25 mg PO QHS PRN 02/07/20 02/07/20 02/05/20 History 25 mg hydrALAZINE [Apresoline TAB] 100 mg PO TID 02/07/20 02/07/20 1 Day Ago History ~02/06/20 100 mg lisinopriL [Zestril TAB] 40 mg PO QPM 02/07/20 02/07/20 1 Day Ago History ~02/06/20 40 mg Active Meds: Active Medications Acetaminophen (Tylenol) 650 mg PO Q4H PRN PRN Reason: Pain MILD(1-3)/Fever >100.5/ADLER Last Admin: 02/08/20 06:13 Dose: 650 mg Documented by: Aspirin (Baby Aspirin) 81 mg PO QPM [facility] Dextrose (D50w (25gm) Syringe) 50 ml IV Q30MIN PRN; Protocol PRN Reason: Hypoglycemia Last Admin: 02/09/20 08:05 Dose: 50 ml Documented by: Diphenhydramine HCl (Benadryl) 25 mg PO QHS PRN PRN Reason: antihistamine, itching & sleep Famotidine (Pepcid) 20 mg IV DAILY [facility] Heparin Sodium (Porcine) (Heparin) 5,000 unit SUB-Q Q8HR [facility] Last Admin: 02/09/20 05:30 Dose: 5,000 unit Documented by: Sodium Chloride (Nacl 0.9%) 100 mls @ 999 mls/hr IV MAHSA PRN PRN Reason: Hypotension Norepinephrine 8 mg/ Sodium (Chloride) 250 mls @ 3.75 mls/hr IV TITR [facility]; Protocol Last Titration: 02/09/20 07:00 Dose: 30 mcg/min, 56.25 mls/hr Documented by: Piperacillin Sod/Tazobactam Sod (Zosyn/Ns 2.25 Gm/50ml) 2.25 gm in 50 mls @ 100 mls/hr IV Q8HR [facility]; Protocol Last Admin: 02/09/20 05:27 Dose: 100 mls/hr Documented by: Insulin Human Lispro (Humalog) 0 unit SUB-Q Q6HR [facility]; Protocol Loperamide HCl (Imodium) 2 mg PO Q2H PRN PRN Reason: Diarrhea Last Admin: 02/08/20 10:54 Dose: 2 mg Documented by: Magnesium Hydroxide (Milk Of Magnesia) 30 ml PO Q4H PRN PRN Reason: Constipation Midodrine (Proamatine) 15 mg PO TID [facility] Last Admin: 02/08/20 20:44 Dose: Not Given Documented by: Ondansetron HCl (Zofran) 4 mg IV Q8H PRN PRN Reason: Nausea And Vomiting Last Admin: 02/08/20 06:13 Dose: 4 mg Documented by: Sodium Chloride (Sodium Chloride Flush Syringe 10 Ml) 10 ml IV BID [facility] Last Admin: 02/08/20 22:23 Dose: 10 ml Documented by: Sodium Chloride (Sodium Chloride Flush Syringe 10 Ml) 10 ml IV PRN PRN PRN Reason: LINE FLUSH Last Admin: 02/07/20 20:21 Dose: 10 ml Documented by: Review of Systems ROS unobtainable: due to endotracheal tube, due to mental status Exam Vital Signs Temp Pulse Resp BP Pulse Ox 98.2 F 72 18 141/52 100 02/06/20 16:27 02/06/20 16:27 02/06/20 16:27 02/06/20 16:27 02/06/20 16:27 - General physical appearance Positive: other (unresponsive, greyish pale appearance) - Respiratory Positive: normal expansion - Cardiovascular Rhythm: regular - Abdomen Abdomen: Present: soft, bowel sounds hypoactive, distended (Focal in area of epigastrium.). Absent: tender, guarding, rigid Results - Labs 02/09/20 Unknown 02/09/20 04:00 Abnormal lab results 02/08/20 02/08/20 02/08/20 Range/Units 11:34 12:03 12:39 RBC (3.65-5.03) M/mm3 Hgb (10.1-14.3) gm/dl Hct (30.3-42.9) % Seg Neuts % (Manual) (40.0-70.0) % Lymphocytes % (Manual) (13.4-35.0) % Seg Neutrophils # Man (1.8-7.7) K/mm3 Lymphocytes # (Manual) (1.2-5.4) K/mm3 ABG pH 7.295 L (7.320-7.450) POC ABG pO2 28.5 L (83-108) mmHg Potassium (3.6-5.0) mmol/L Chloride (98-107) mmol/L Carbon Dioxide (22-30) mmol/L BUN (7-17) mg/dL Creatinine (0.6-1.2) mg/dL Glucose (65-100) mg/dL POC Glucose 59 L 114 H (70-105) Lactic Acid (0.7-2.0) mmol/L Calcium (8.4-10.2) mg/dL AST (5-40) units/L C-Reactive Protein (0.00-1.30) mg/dL Total Protein (6.3-8.2) g/dL Albumin (3.9-5) g/dL 02/08/20 02/08/20 02/08/20 Range/Units 14:10 14:10 18:01 RBC (3.65-5.03) M/mm3 Hgb (10.1-14.3) gm/dl Hct (30.3-42.9) % Seg Neuts % (Manual) (40.0-70.0) % Lymphocytes % (Manual) (13.4-35.0) % Seg Neutrophils # Man (1.8-7.7) K/mm3 Lymphocytes # (Manual) (1.2-5.4) K/mm3 ABG pH (7.320-7.450) POC ABG pO2 (83-108) mmHg Potassium (3.6-5.0) mmol/L Chloride (98-107) mmol/L Carbon Dioxide (22-30) mmol/L BUN (7-17) mg/dL Creatinine (0.6-1.2) mg/dL Glucose (65-100) mg/dL POC Glucose 43 L (70-105) Lactic Acid 6.00 H* (0.7-2.0) mmol/L Calcium (8.4-10.2) mg/dL AST (5-40) units/L C-Reactive Protein 11.30 H (0.00-1.30) mg/dL Total Protein (6.3-8.2) g/dL Albumin (3.9-5) g/dL 02/08/20 02/09/20 02/09/20 Range/Units 21:43 02:08 04:00 RBC (3.65-5.03) M/mm3 Hgb (10.1-14.3) gm/dl Hct (30.3-42.9) % Seg Neuts % (Manual) (40.0-70.0) % Lymphocytes % (Manual) (13.4-35.0) % Seg Neutrophils # Man (1.8-7.7) K/mm3 Lymphocytes # (Manual) (1.2-5.4) K/mm3 ABG pH (7.320-7.450) POC ABG pO2 (83-108) mmHg Potassium 3.1 L (3.6-5.0) mmol/L Chloride 96.1 L (98-107) mmol/L Carbon Dioxide 19 L (22-30) mmol/L BUN 55 H (7-17) mg/dL Creatinine 3.9 H (0.6-1.2) mg/dL Glucose 47 L (65-100) mg/dL POC Glucose 59 L 59 L (70-105) Lactic Acid (0.7-2.0) mmol/L Calcium 6.7 L (8.4-10.2) mg/dL AST 95 H (5-40) units/L C-Reactive Protein (0.00-1.30) mg/dL Total Protein 4.9 L (6.3-8.2) g/dL Albumin 2.2 L (3.9-5) g/dL 02/09/20 02/09/20 02/09/20 Range/Units 04:53 05:29 07:46 RBC (3.65-5.03) M/mm3 Hgb (10.1-14.3) gm/dl Hct (30.3-42.9) % Seg Neuts % (Manual) (40.0-70.0) % Lymphocytes % (Manual) (13.4-35.0) % Seg Neutrophils # Man (1.8-7.7) K/mm3 Lymphocytes # (Manual) (1.2-5.4) K/mm3 ABG pH (7.320-7.450) POC ABG pO2 (83-108) mmHg Potassium (3.6-5.0) mmol/L Chloride (98-107) mmol/L Carbon Dioxide (22-30) mmol/L BUN (7-17) mg/dL Creatinine (0.6-1.2) mg/dL Glucose (65-100) mg/dL POC Glucose 59 L 107 H 51 L (70-105) Lactic Acid (0.7-2.0) mmol/L Calcium (8.4-10.2) mg/dL AST (5-40) units/L C-Reactive Protein (0.00-1.30) mg/dL Total Protein (6.3-8.2) g/dL Albumin (3.9-5) g/dL 02/09/20 Range/Units Unknown RBC 3.32 L (3.65-5.03) M/mm3 Hgb 9.8 L (10.1-14.3) gm/dl Hct 29.5 L D (30.3-42.9) % Seg Neuts % (Manual) 7.0 L (40.0-70.0) % Lymphocytes % (Manual) 2.0 L (13.4-35.0) % Seg Neutrophils # Man 0.3 L (1.8-7.7) K/mm3 Lymphocytes # (Manual) 0.1 L (1.2-5.4) K/mm3 ABG pH (7.320-7.450) POC ABG pO2 (83-108) mmHg Potassium (3.6-5.0) mmol/L Chloride (98-107) mmol/L Carbon Dioxide (22-30) mmol/L BUN (7-17) mg/dL Creatinine (0.6-1.2) mg/dL Glucose (65-100) mg/dL POC Glucose (70-105) Lactic Acid (0.7-2.0) mmol/L Calcium (8.4-10.2) mg/dL AST (5-40) units/L C-Reactive Protein (0.00-1.30) mg/dL Total Protein (6.3-8.2) g/dL Albumin (3.9-5) g/dL Diabetes panel 02/09/20 Range/Units 04:00 Sodium 138 (137-145) mmol/L Potassium 3.1 L (3.6-5.0) mmol/L Chloride 96.1 L (98-107) mmol/L Carbon Dioxide 19 L (22-30) mmol/L BUN 55 H (7-17) mg/dL Creatinine 3.9 H (0.6-1.2) mg/dL Glucose 47 L (65-100) mg/dL Calcium 6.7 L (8.4-10.2) mg/dL AST 95 H (5-40) units/L ALT 26 (7-56) units/L Alkaline Phosphatase 113 (35-129) units/L Total Protein 4.9 L (6.3-8.2) g/dL Albumin 2.2 L (3.9-5) g/dL Calcium panel 02/09/20 Range/Units 04:00 Calcium 6.7 L (8.4-10.2) mg/dL Albumin 2.2 L (3.9-5) g/dL Pituitary panel 02/09/20 Range/Units 04:00 Sodium 138 (137-145) mmol/L Potassium 3.1 L (3.6-5.0) mmol/L Chloride 96.1 L (98-107) mmol/L Carbon Dioxide 19 L (22-30) mmol/L BUN 55 H (7-17) mg/dL Creatinine 3.9 H (0.6-1.2) mg/dL Glucose 47 L (65-100) mg/dL Calcium 6.7 L (8.4-10.2) mg/dL Adrenal panel 02/09/20 Range/Units 04:00 Sodium 138 (137-145) mmol/L Potassium 3.1 L (3.6-5.0) mmol/L Chloride 96.1 L (98-107) mmol/L Carbon Dioxide 19 L (22-30) mmol/L BUN 55 H (7-17) mg/dL Creatinine 3.9 H (0.6-1.2) mg/dL Glucose 47 L (65-100) mg/dL Calcium 6.7 L (8.4-10.2) mg/dL Total Bilirubin 0.30 (0.1-1.2) mg/dL AST 95 H (5-40) units/L ALT 26 (7-56) units/L Alkaline Phosphatase 113 (35-129) units/L Total Protein 4.9 L (6.3-8.2) g/dL Albumin 2.2 L (3.9-5) g/dL - Imaging Chest x-ray: report reviewed, image reviewed Assessment and Plan - Patient Problems (1) Pneumoperitoneum Current Visit: Yes Status: Acute Plan to address problem: Patient in critical condition. Please note, general surgery was called earlier this morning and saw the patient at that time. This is a late entry. My initial assessment is that the pneumoperitoneum is secondary to the CPR which may have caused the lung injury. The air from that injury may have passed into the peritoneum. Prior chest x-ray showed no evidence of pneumoperitoneum. There is nothing in the chart to indicate that she had any abdominal complaints. White count was normal. Initially when we are called, I requested a CT scan to try and better identify the source of the pneumoperitoneum. Patient appears to be in very poor condition. Skin color is very poor. She is unresponsive. Oxygen saturations are low. She has a grave prognosis. Please call with questions. Time=20min
[2020-02-09 10:41] VITALS: BP 106/47
--- NOTE | 2020-02-09 11:19 | Event Note ---
Date: 02/09/20 per RN decompensated this am and s/p CODE blue hypotensive at time of my evaluation and then lost pulse she hade been made a DNR by family prior Pronounced by attending
[2020-02-09] MEDS ORDERED: INSULIN LISPRO 100 UNIT/ML VIAL 3 mL SUB-Q SCH (12:00)
--- NOTE | 2020-02-09 15:05 | Procedure Note ---
Date of procedure: 02/08/20 Pre-op diagnosis: Septic shock Post-op diagnosis: same Procedure: RIJ CVL PLACEMENT (Full dictation # [id number]) Please see dictated notes for full details
--- NOTE | 2020-02-09 15:22 | Operative Report ---
PROCEDURE: Right IJ central line placement. INDICATIONS: Severe hypotension, septic shock in a patient without any IV access in case of cardiac arrest. CONSENT: This was an emergent procedure. No informed consent was obtained. COMPLICATIONS: No immediate procedural complications. SEDATION: The patient was given 5 mg of Haldol IV as well as 1 mg of Ativan to keep her from thrashing around during the procedure; also generous local anesthetic agent was used. PROCEDURE DETAILS: After premedication preparation, the right internal jugular vein was located first with the ultrasound machine. It was a relatively decent size vein easily compressible with carotid artery seen pulsating behind the vein. The area of the right upper anterior triangle of the neck was sterilely prepped and draped. Strict sterile technique was used throughout the procedure including hat, mask, sterile gloves, sterile gown and full barrier protection. Again, generous local anesthetic agent was used. The ultrasound probe had also been prepared and placed in the sterile sheath. The right IJ was entered on the first stick with provided central line needle. Good venous looking blood return was obtained. It was rather thick. There was an area around the skin of the insertion point just above it that showed previous line insertions likely and the skin was thick in this area. Again, we were able to enter the internal jugular vein on the right side under direct visualization with the ultrasound machine. Good looking venous blood return was obtained. A wire was threaded through the needle and after dilatation, catheter was advanced over the wire. Again, good looking venous blood return was obtained. I should mention the patient had earlier been placed in Trendelenburg position. The catheter was then sutured in place with 0 silk sutures and all lumens were flushed with sterile saline. Post-procedure chest x-ray was done and placement has been confirmed with the tip of the right IJ in the lower inferior internal jugular vein/right atrial junction. The nurse has been given orders to use the line for administration of medications and vasopressors. JOB# [id number] MITCH/ELEANOR
[2020-02-09] MEDS ORDERED: ASPIRIN 81 MG TAB CHEW PO SCH (18:00)
--- NOTE | 2020-02-11 14:15 | Death Summary ---
Summary - Providers Date of service: 02/09/20 Consults: 02/06/20 21:29 Consult to Physician [CONS] Urgent Comment: Dr. Hughes spoke with Dr. Russell @ 5 Consulting Provider: JUAN RUSSELL Physician Instructions: Reason For Exam: esrd needing dialysis 02/06/20 22:59 Consult to Dietitian/Nutrition [CONS] Routine Physician Instructions: Reason For Exam: Reason for Consult: Diet education 02/08/20 12:16 Consult to Physician [CONS] Urgent Comment: Consulting Provider: KEON SCHULZ Physician Instructions: Reason For Exam: Central line/for vasopressors 02/08/20 12:17 Consult to Physician [CONS] Urgent Comment: Consulting Provider: RUBEN BROOKS Physician Instructions: Reason For Exam: Resp failure,shock.Cr Care consult 02/08/20 15:40 Consult to Physician [CONS] Routine Comment: Consulting Provider: JOSHUA NICOLE Physician Instructions: Reason For Exam: Severe Sepsis Attending: RONN FINLEY - summary Date of admission: 02/08/20 12:00 Date of : 02/09/20 (at 09:11) Significant findings: 64-year-old female with known history of hypertension, diabetes mellitus arthritis and end-stage renal disease on dialysis was admitted through emergency room with history of generalized weakness , fatigue , and generalized body swelling for the last few days .patient is noncompliant with hemodialysis Patient goes to [facility] about once a week for dialysis secondary to lack of insurance. She was at [facility] about 3 days ago and dialysis was declined as she did not meet criteria for emergent dialysis. Patient has not had dialysis for the past 10 days. Patient had generalized anasarca edema of the breast and abdomen, patient still makes a little bit of urine almost every 3 days. She denies any fever or chills, no nausea vomiting, no chest pain, no shortness of breath, no headache or dizziness. Work-up in the emergency room today reveals hypokalemia of 2.9. And fluid over load [employer] Dr. Russell has been notified by the ER physician , nephrology evaluated the patient and patient received hemodialysis Per schedule. Patient was hypotensive, transferred the patient to ICU started on Levophed. The refinery technician hours of 02/09/2020, patient was not PEA cardiac arrest, covering hospitalist performed CPR per ACLS protocol With return of spontaneous circulation. Patient was also intubated and placed on mechanical ventilation, pulmonary critical was consulted In the morning during rounds on 02/09/2020, I called patient's sister Ms. Solis and informed of the cardiac arrest, CPR, intubation on mechanical ventilation And patient's hypotension and poor prognosis. And CODE STATUS. She reported to me that her sister has discussed with her in the past that she d id not want life support or CPR in the event of cardiac arrest And requested DNR status. Patient was made DNR Later that morning nurse called me and reported that patient is unresponsive and , when I evaluated patient has no cardiopulmonary activity Unresponsive, unable to record blood pressure or heart rate. Pronounced . And family was informed Time of : At 09:11 on 02/09/2020. Final diagnosis: --PEA cardiac arrest;s/p CPR Supportive care, patient is critically ill with poor prognosis --Ac.Resp Failure / fluid overload/cardiac arrest: Intubated on ventilatory support. Nebulizers, pulmonary critical following. -- Shock/hypotension On Levophed per protocol,And midodrine, Unable to give fluid bolus due to fluid overload shortness of breath. --? Pneumoperitoneum; on chest x-ray following intubation Will get CT abdomen and pelvis with oral contrast Consulted surgeon , discussed with Dr. Gonzalez --Metabolic/anoxic encephalopathy Multifactorial, supportive care --Diarrhea, probably viral: Imodium, plenty of oral fluids, stool analysis, Supportive care >90% -- ESRD needing dialysis/fluid overload Current Visit: Yes Status: Acute Plan to address problem: Fluid overload ,hemodialysis per schedule, HD per schedule Nephrology following -- Breast edema/generalized edema Current Visit: Yes Status: Acute Plan to address problem: Possibly secondary to fluid retention due to lack of dialysis in 10 days. Mild improvement postdialysis --Generalized weakness/general debility Current Visit: Yes Status: Acute Plan to address problem: Due to underlying disease process --Medical noncompliance; Patient is noncompliant with dialysis and follow-up visits Counseling done strongly advised to comply with medications diet follow-up visits especially hemodialysis -- Hypokalemia Current Visit: Yes Status: Acute . Plan to address problem: Replace IV KCl, follow levels Procedures/treatments rendered: IJ line placement Hemodialysis Intubation mechanical ventilation Pertinent studies: Multiple chest x-rays Disposition: Patient - Final diagnosis (1) Acute respiratory failure with hypoxia Note: Final diagnosis: (2) PEA (Pulseless electrical activity) Note: Final diagnosis: (3) Fluid overload Qualifiers: Note: Final diagnosis: (4) Other shock Note: Final diagnosis: (5) Toxic metabolic encephalopathy Note: Final diagnosis: (6) Acute metabolic encephalopathy Note: Final diagnosis: (7) ESRD needing dialysis Note: Final diagnosis: (8) Severe protein-calorie malnutrition Note: Final diagnosis: (9) Pneumoperitoneum Note: Final diagnosis: (10) Renal anasarca Note: Final diagnosis: (11) Hypoglycemia Note: Final diagnosis: (12) Generalized weakness Note: Final diagnosis: (13) Hypokalemia Note: Final diagnosis:
== END 2020-02-09 12:30 | DRG 208 ==
LOC: ED 16:17 → 4A 21:30 → OBSVTOIN 02-08 12:00 → CC1 02-08 12:08
PROVIDERS: ADMIT Internal Medicine Geriatric Medicine; ATTEND Internal Medicine
PROC: 0BH17EZ Insertion of Endotracheal Airway into Trachea, Via Natural or Artificial Opening (ICD-10-PCS; principal; 2020-02-08)
PROC: 5A12012 Performance of Cardiac Output, Single, Manual (ICD-10-PCS; 2020-02-08)
PROC: 5A1D70Z Performance of Urinary Filtration, Intermittent, Less than 6 Hours Per Day (ICD-10-PCS; 2020-02-08)
PROC: 5A09357 Assistance with Respiratory Ventilation, Less than 24 Consecutive Hours, Continuous Positive Airway Pressure (ICD-10-PCS; 2020-02-08)
PROC: 02H633Z Insertion of Infusion Device into Right Atrium, Percutaneous Approach (ICD-10-PCS; 2020-02-08)
PROC: B548ZZA Ultrasonography of Superior Vena Cava, Guidance (ICD-10-PCS; 2020-02-08)
PROC: 5A1935Z Respiratory Ventilation, Less than 24 Consecutive Hours (ICD-10-PCS; 2020-02-09)
DX: J96.01 Acute respiratory failure with hypoxia (principal); N18.6 End stage renal disease; G93.41 Metabolic encephalopathy; E87.2 Acidosis; G93.1 Anoxic brain damage, not elsewhere classified; I12.0 Hypertensive chronic kidney disease with stage 5 chronic kidney disease or end stage renal disease; I95.9 Hypotension, unspecified; E87.6 Hypokalemia; N64.89 Other specified disorders of breast; E11.22 Type 2 diabetes mellitus with diabetic chronic kidney disease; R57.8 Other shock; M19.90 Unspecified osteoarthritis, unspecified site; D63.1 Anemia in chronic kidney disease; R62.7 Adult failure to thrive; R19.7 Diarrhea, unspecified; I46.9 Cardiac arrest, cause unspecified; Z98.51 Tubal ligation status; Z91.040 Latex allergy status; Z79.899 Other long term (current) drug therapy
CPT/HCPCS: 31500; 36415; 71045; 80048; 80074; 80076; 82140; 82805; 82947; 82962; 84145; 85007; 85025; 85027; 85610; 86140; 87040; 87045; 87070; 87205; 87641; 92950; 94002; 94003; 94660; 94760; G0378; J0171; J1630; J1644; J2060; J2270; J2405; J2543; J3370; J3480; J7040; J7050; J7070; P9047